=== PATIENT | male | born 1950 | race Caucasian/White ===

== ENCOUNTER 2020-01-09 09:38 | Outpatient (CLI) | payer MEDICARE, OTHER, SELFPAY ==
--- NOTE | 2020-01-09 09:54 | XR_ITS ---
WS: [id number] XR shoulder RT min 2V* [id number] REASON FOR EXAM: ROTATOR CUFF TENDONITIS FINDINGS: The acromioclavicular joint was normal. Glenoid humeral articulations normal. The clavicle and scapula bodies were normal. XR/XR shoulder RT min 2V* [id number] IMPRESSION: Negative right shoulder for bony changes.
--- NOTE | 2020-01-09 09:54 | XR_ITS ---
WS: [id number] XR shoulder LT min 2V* [id number] REASON FOR EXAM: ROTATOR CUFF TENDONITIS FINDINGS: The acromioclavicular joint showed hypertrophic changes with spurring along the undersurfac e of the clavicle. The glenoid humeral articulations normal. The clavicle and scapula bodies were normal. XR/XR shoulder LT min 2V* [id number] IMPRESSION: SPECT impingement changes off the spurring off the distal clavicle.
== END 2020-01-09 09:39 | disposition home or self-care (01) ==
LOC: RAD 09:49
PROVIDERS: Family Provider Family Medicine; PCP Family Medicine; Visit Provider Family Medicine
DX: M65.812 Other synovitis and tenosynovitis, left shoulder (principal); M65.811 Other synovitis and tenosynovitis, right shoulder
CPT/HCPCS: 73030

== ENCOUNTER 2020-04-26 10:58 | Outpatient (CLI) | payer MEDICARE, OTHER, SELFPAY ==
--- NOTE | 2020-04-26 11:01 | XR_ITS ---
WS: [id number] XR chest 2V* [id number] REASON FOR EXAM: DYSPNEA, CORONARY ARTERY DISEASE FINDINGS: The cardiac silhouette is not enlarged. The lung castro are well aerated. There is no pneumonia, pleural effusion, pulmonary edema, no pneumo thorax or mass defects. No definite osseous abnormalities. The hilum and apices are normal. There is basically no interval change since March 15, 2009. XR/XR chest 2V* [id number] IMPRESSION: Negative chest for active pathology.
--- NOTE | 2020-04-26 11:01 | XR_ITS ---
WS: [id number] XR lumbar spine 2-3V* [id number] REASON FOR EXAM: BACK PAIN, LUMBBAR FINDINGS: Degenerated disc changes L5-S1. There is spurring anteriorly at L4 and L5. The lumbosacral angle shows increased lordosis. There is no fractures of the lumbar spine, spinous processes, transverse processes. XR/XR lumbar spine 2-3V* [id number] IMPRESSION: Degenerated disc changes L5-S1. Slight increased lordosis.
== END 2020-04-26 10:59 | disposition home or self-care (01) ==
LOC: RADWPI 11:00
PROVIDERS: Family Provider Family Medicine; PCP Family Medicine; Visit Provider Family Medicine
DX: M54.5 Low back pain (principal); R06.00 Dyspnea, unspecified; E03.9 Hypothyroidism, unspecified; I25.10 Atherosclerotic heart disease of native coronary artery without angina pectoris; I10 Essential (primary) hypertension; E11.9 Type 2 diabetes mellitus without complications; M40.46 Postural lordosis, lumbar region; M51.37 Other intervertebral disc degeneration, lumbosacral region
CPT/HCPCS: 71046; 72100

== ENCOUNTER 2020-12-16 07:50 | Outpatient (CLI) | payer MEDICARE, SELFPAY ==
--- NOTE | 2020-12-16 07:57 | FL_ITS ---
WS: [id number] UPPER GI WITH AIR TECHNICAL: Double contrast upper GI with small bowel follow-through. FLUOROSCOPY TIME: 2.4 minutes CLINICAL INFORMATION: ABDOMINAL PAIN COMPARISON: None. FINDINGS: Swallowing: Normal. Esophagus: Mild esophageal dysmotility. No stricture or obstructing mass. Normal GE junction. No sign ificant hiatal hernia. Gastroesophageal reflux: Present Stomach: Normal. Duodenum: Normal. Other findings: None. SMALL BOWEL EXAMINATION CLINICAL INFORMATION: ABDOMINAL PAIN COMPARISON: None. FINDINGS: Initial abdomen radiograph: Normal bowel gas pattern. No abnormal calcification. Contrast material: 50/50 thin barium sulfate suspension. Transit time: 45 Minutes (normal = 30 - 240 minutes) Normal small bowel follow-through. No small bowel stricture, dilatation, adhesion, or mass. The termi nal ileum is normal.No evidence of high-grade stricture or obstructing mass. FLUOROSCOPY TIME: 2.4 minutes FL/FL upperGI air smallbowel ser* IMPRESSION: 1. Normal small bowel follow-through with normal transit time. 2. Mild esophageal dysmotility with reflux visualized in the upright and supin e position. 3. No significant hiatal hernia. 4. Normal double contrast stomach and duodenum.
== END 2020-12-16 07:51 | disposition home or self-care (01) ==
PROVIDERS: PCP Family Medicine; Visit Provider Family Medicine
DX: R10.9 Unspecified abdominal pain (principal)
CPT/HCPCS: 74246; 74248

== ENCOUNTER 2021-04-09 03:04 | Inpatient (IN) | payer MEDICARE, SELFPAY ==
[2021-04-09 03:10] VITALS: BP 162/82; PULSE 64; RESP 18; TEMP 36.4; O2SAT 95; BMI 32.1
--- NOTE | 2021-04-09 03:20 | CTR_ITS ---
PROCEDURE INFORMATION: Exam: CT Abdomen And Pelvis With Contrast Exam date and time: 04/09/2021 3:21 AM Age: 71 years old Clinical indication: Abdominal pain; Generalized; Prior surgery; Surgery type: Partial colectomy. Colostomy reversal. Hernia repair. ; Patient HX: Abd pain with constipation. TECHNIQUE: Imaging protocol: Computed tomography of the abdomen and pelvis with contrast. Radiation optimization: All CT scans at this facility use at least one of these dose optimization techniques: automated exposure control; mA and/or kV adjustment per patient size (includes targeted exams where dose is matched to clinical indication); or iterative reconstruction. Contrast material: OMNI 300; Contrast volume: 95 ml; Contrast route: INTRAVENOUS (IV); COMPARISON: CR Hip 2-3v LEFT wwo Pelv* [id number] 07/16/2014 8:42 AM RADIATION DOSE METRICS: Total DLP (mGy-cm): 1919.81 FINDINGS: Heart: Normal heart size. Coronary atherosclerotic calcifications seen. No pericardial effusion. Liver: Normal. No mass. Gallbladder and bile ducts: Normal. No calcified stones. No ductal dilation. Pancreas: Cystic lesions measuring 2.0 cm and 0.8 cm are seen in the pancreatic head. No pancreatic ductal dilatation seen. There is homogeneous enhancement of the pancreas. Spleen: Normal. No splenomegaly. Adrenal glands: Normal. No mass. Kidneys and ureters: Normal. No hydronephrosis. Stomach and bowel: In the right lower quadrant, there is a short segment of small bowel wall thickening without significant surrounding inflammatory changes, resulting obstruction of the small bowel proximally, manifested by dilated loops of small bowel with scattered air-fluid levels and small amount of free fluid in the right lower quadrant. Fluid is seen within the nondistended small bowel distally. Patent colorectal anastomosis.There is diverticulosis without evidence of diverticulitis. Appendix: No evidence of appendicitis. Intraperitoneal space: Unremarkable. No free air. No significant fluid collection. Vasculature: Mild diffuse atherosclerotic disease is present. Lymph nodes: Unremarkable. No enlarged lymph nodes. Urinary bladder: Unremarkable as visualized. Reproductive: Unremarkable as visualized. Bones/joints: Degenerative changes of the spine seen. Soft tissues: A small fat containing spigelian hernia is noted. CT/CT abdomen pelvis w con* [id number] IMPRESSION: 1. Imaging findings of partial small bowel obstruction versus focal enteritis, resulting in obstruction of small bowel proximally. Infectious and inflammatory etiologies should be considered. 2. Cystic lesions in the pancreatic head. Further evaluation with contrast enhanced abdomen MRI/MRCP in a non emergent basis is recommended. Radiation Dose CTDIVOL = (mGy): DLP = 1919.81 (mGy-cm)
--- NOTE | 2021-04-09 03:22 | W.ED.ABDPA2 ---
HPI - Abdominal Pain General: Chief Complaint: Abdominal Pain Stated Complaint: ab pain Time Seen by Provider: 04/09/21 03:04 Source: patient Mode of arrival: ambulatory Limitations: no limitations History of Present Illness: HPI narrative: 71-year-old male states he has been having right lower quadrant abdominal pain since 8 PM. He states the pain is sharp in nature and he rates an 8 out of 10. States is much worse with palpation and movement improved with rest. He had a history of a colectomy roughly 20 years ago and he denies any abdominal surgery since then. He denies any vomiting or fever. Denies any diarrhea. MD elicited complaint: abdominal pain Associated Symptoms: Denies chills, dysuria and fever(s) Review of Systems Const: Denies: fever(s), chills, body aches or change in appetite Eyes: Denies: blurry vision or eye discomfort ENMT: Denies: throat pain or dental pain Card: Denies: chest pain Resp: Denies: dyspnea GI: Reports: abdominal pain : Denies: dysuria Musc: Denies: neck pain or back pain Skin/Breast: Denies: rash Neuro: Denies: headache(s) Psych: Denies: depression Jose/Lymph: Denies: easy bruising All/Imm: Denies: urticaria PFSH ED PFSH: Medical History (Updated 04/09/21 @ 05:32 by Juliano Quiroz MD) Dyslipidemia Hypertension Hypothyroidism Psoriasis Surgical History (Updated 04/09/21 @ 05:32 by Juliano Quiroz MD) H/O adenoidectomy 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 H/O lithotripsy History of tonsillectomy S/P right knee arthroscopy Family History (Updated 04/09/21 @ 05:32 by Juliano Quiroz MD) Other Family history of premature coronary artery disease Social History (Updated 04/09/21 @ 05:32 by Juliano Quiroz MD) Smoking and tobacco status: never smoked Alcohol intake: never Substance/Drug Use: never Household members: spouse Housing: House Physical Exam Const: COMMON NORMALS: no acute distress, patient oriented x3 and healthy appearing HENMT: COMMON NORMALS: normocephalic and atraumatic HEAD & SCALP: normocephalic and atraumatic Eye: COMMON NORMALS: Equal, round and reactive pupils present and EOMs intact bilaterally PUPIL: Yes Equal, round and reactive pupils present Neck/C-Spine: COMMON NORMALS: full ROM and supple Chest: COMMONS NORMALS: normal inspection of the chest and normal palpation of entire chest wall Resp: COMMON NORMALS: normal respiratory effort, No retractions, No use of accessory muscles and clear to auscultation bilaterally AUSCULTATION: clear to auscultation bilaterally Cardio: COMMON NORMALS: regular rate, regular rhythm and No murmurs present (Cardio) RATE: regular rate RHYTHM: regular rhythm GI: COMMON NORMALS: Normal to inspection, nondistended, normoactive bowel sounds present, Soft to palpation and no masses PALPATION: Yes Soft to palpation and Yes Tenderness to palpation present (GI) Details: RLQ Extremity: COMMON NORMALS: normal to inspection and full ROM Neuro: COMMON NORMALS: patient oriented x3, moves all extremities and no focal motor deficits Psych: COMMON NORMALS: mental status grossly normal, Normal thought process present and cooperative THOUGHT PROCESS: Normal thought process present Skin: COMMON NORMALS: no rashes or lesions noted and no wounds GENERAL SKIN EXAM: no rashes or lesions noted Course Vital Signs: Vital signs: Vital Signs Temperature 97.5 F L 04/09/21 03:10 Pulse Rate 62 04/09/21 05:15 Respiratory Rate 17 04/09/21 05:15 Blood Pressure 156/81 04/09/21 05:15 Pulse Oximetry 96 04/09/21 05:15 MDM - Abdominal Pain MDM Narrative: Medical decision making narrative: Presents for abdominal pain. CT shows likely small bowel obstruction. Patient had NG tube placed in the ER and I spoke to hospitalist will admit. Patient's vital signs and blood work are all normal. He has been stable while in the ER. Lab Data: Labs: Lab Results 04/09/21 04/09/21 04/09/21 Range/Units 03:22 03:22 03:22 WBC 8.4 (4.0-10.0) 10^3/ uL RBC 4.54 (4.1-5.3) 10^6/u L Hgb 14.8 (11.7-16.6) g/dL Hct 44.9 (42.0-52.0) % MCV 98.9 H (80-94) fL MCH 32.6 (28.0-34.0) pg MCHC 33.0 (30.0-36.0) g/dL RDW 12.2 (12.1-15.1) % Plt Count 183 (130-400) 10^3/c mm MPV 9.9 (7.4-10.4) fL Neut % (Auto) 75.0 % Lymph % (Auto) 11.3 % Queens % (Auto) 9.8 % Eos % (Auto) 2.2 % Baso % (Auto) 0.6 % Neut # (Auto) 6.27 (1.8-7.7) 10^3/u L Lymph # (Auto) 0.9 (0.8-4.8) 10^3/u L Queens # (Auto) 0.8 (0.2-0.9) 10^3/u L Eos # (Auto) 0.2 (0.0-0.8) 10^3/u L Baso # (Auto) 0.1 (0.0-0.1) 10^3/u L Nucleated RBC % (a uto) 0 % Nucleated RBCs # 0.0 /100WBC Sodium 138 (136-145) mmol/L Potassium 4.4 (3.5-5.1) mmol/L Chloride 103 (98-107) mmol/L Carbon Dioxide 25 (22-29) mmol/L Anion Gap 14.4 (5-19) BUN 21 (8-23) mg/dL Creatinine 0.6 L (0.7-1.2) mg/dL GFR Calculation Not Reportable Glucose 122 H (65-115) mg/dL Calculated Osmolal ity 290 (285-295) mOsm/k g Lactate 1.2 (0.5-2.2) mmol/L Calcium 9.0 (8.5-10.5) mg/dL Total Bilirubin 0.6 (0.15-1.2) mg/dL AST 28 (0-40) U/L ALT 27 (0-41) U/L Alkaline Phosphata se 83 (40-130) IU/L Total Protein 6.8 (6.6-8.7) g/dL Albumin 4.0 (3.5-5.2) g/dL Globulin 2.8 (1.3-4.6) g/dL Lipase 54 (13-60) U/L Urine Color (Yellow) Urine Appearance (CLEAR) Urine pH (5-7) Ur Specific Gravit y (1.005-1.030) Urine Protein (Negative) Urine Glucose (UA) (Normal) Urine Ketones (Negative) Urine Blood (Negative) Urine Nitrate (Negative) Urine Bilirubin (Negative) Urine Urobilinogen (Negative) mg/dL Ur Leukocyte Afshan ase (Negative) Urine RBC (0-2) /hpf Urine WBC (0-5) /hpf Ur Squamous Epith Cells (0-5) /hpf Amorphous Sediment Urine Bacteria (NONE) /hpf Hyaline Casts /lpf Urine Mucus /hpf 04/09/21 Range/Units 04:30 WBC (4.0-10.0) 10^3/ uL RBC (4.1-5.3) 10^6/u L Hgb (11.7-16.6) g/dL Hct (42.0-52.0) % MCV (80-94) fL MCH (28.0-34.0) pg MCHC (30.0-36.0) g/dL RDW (12.1-15.1) % Plt Count (130-400) 10^3/c mm MPV (7.4-10.4) fL Neut % (Auto) % Lymph % (Auto) % Queens % (Auto) % Eos % (Auto) % Baso % (Auto) % Neut # (Auto) (1.8-7.7) 10^3/u L Lymph # (Auto) (0.8-4.8) 10^3/u L Queens # (Auto) (0.2-0.9) 10^3/u L Eos # (Auto) (0.0-0.8) 10^3/u L Baso # (Auto) (0.0-0.1) 10^3/u L Nucleated RBC % (a uto) % Nucleated RBCs # /100WBC Sodium (136-145) mmol/L Potassium (3.5-5.1) mmol/L Chloride (98-107) mmol/L Carbon Dioxide (22-29) mmol/L Anion Gap (5-19) BUN (8-23) mg/dL Creatinine (0.7-1.2) mg/dL GFR Calculation Glucose (65-115) mg/dL Calculated Osmolal ity (285-295) mOsm/k g Lactate (0.5-2.2) mmol/L Calcium (8.5-10.5) mg/dL Total Bilirubin (0.15-1.2) mg/dL AST (0-40) U/L ALT (0-41) U/L Alkaline Phosphata se (40-130) IU/L Total Protein (6.6-8.7) g/dL Albumin (3.5-5.2) g/dL Globulin (1.3-4.6) g/dL Lipase (13-60) U/L Urine Color Yellow (Yellow) Urine Appearance Clear (CLEAR) Urine pH 5 (5-7) Ur Specific Gravit y 1.025 (1.005-1.030) Urine Protein 1+ H (Negative) Urine Glucose (UA) Norm (Normal) Urine Ketones Negative (Negative) Urine Blood 2+ H (Negative) Urine Nitrate Negative (Negative) Urine Bilirubin Neg (Negative) Urine Urobilinogen Norm (Negative) mg/dL Ur Leukocyte Afshan ase Negative (Negative) Urine RBC 5-10 H (0-2) /hpf Urine WBC None (0-5) /hpf Ur Squamous Epith Cells 0-4 H (0-5) /hpf Amorphous Sediment Not Reportable Urine Bacteria None (NONE) /hpf Hyaline Casts 5-10 H /lpf Urine Mucus 1+ /hpf Imaging Data ^: CT Abd/Pel: Attestation: I personally reviewed and interpreted this imaging study as follows: Radiologist's impression: [address] [address] [address] Scan Report Signed Patient: Aleksandar Hoffman Unit #: [id number] : [id number] Age/Sex: 71 / M ADM Date: 04/09/21 Loc: ER Room/Bed: Attending Dr: Ordering Provider/Ordering MD: Frankie Meyer MD Date of Service: 04/09/21 Procedure(s): CT abdomen pelvis w con* [id number] Accession Number(s): [id number] Report Number: [id number] PROCEDURE INFORMATION: Exam: CT Abdomen And Pelvis With Contrast Exam date and time: 04/09/2021 3:21 AM Age: 71 years old Clinical indication: Abdominal pain; Generalized; Prior surgery; Surgery type: Partial colectomy. Colostomy reversal. Hernia repair. ; Patient HX: Abd pain with constipation. TECHNIQUE: Imaging protocol: Computed tomography of the abdomen and pelvis with contrast. Radiation optimization: All CT scans at this facility use at least one of these dose optimization techniques: automated exposure control; mA and/or kV adjustment per patient size (includes targeted exams where dose is matched to clinical indication); or iterative reconstruction. Contrast material: OMNI 300; Contrast volume: 95 ml; Contrast route: INTRAVENOUS (IV); COMPARISON: CR Hip 2-3v LEFT wwo Pelv* [id number] 07/16/2014 8:42 AM RADIATION DOSE METRICS: Total DLP (mGy-cm): 1919.81 FINDINGS: Heart: Normal heart size. Coronary atherosclerotic calcifications seen. No pericardial effusion. Liver: Normal. No mass. Gallbladder and bile ducts: Normal. No calcified stones. No ductal dilation. Pancreas: Cystic lesions measuring 2.0 cm and 0.8 cm are seen in the pancreatic head. No pancreatic ductal dilatation seen. There is homogeneous enhancement of the pancreas. Spleen: Normal. No splenomegaly. Adrenal glands: Normal. No mass. Kidneys and ureters: Normal. No hydronephrosis. Stomach and bowel: In the right lower quadrant, there is a short segment of small bowel wall thickening without significant surrounding inflammatory changes, resulting obstruction of the small bowel proximally, manifested by dilated loops of small bowel with scattered air-fluid levels and small amount of free fluid in the right lower quadrant. Fluid is seen within the nondistended small bowel distally. Patent colorectal anastomosis.There is diverticulosis without evidence of diverticulitis. Appendix: No evidence of appendicitis. Intraperitoneal space: Unremarkable. No free air. No significant fluid collection. Vasculature: Mild diffuse atherosclerotic disease is present. Lymph nodes: Unremarkable. No enlarged lymph nodes. Urinary bladder: Unremarkable as visualized. Reproductive: Unremarkable as visualized. Bones/joints: Degenerative changes of the spine seen. Soft tissues: A small fat containing spigelian hernia is noted. CT/CT abdomen pelvis w con* [id number] IMPRESSION: 1. Imaging findings of partial small bowel obstruction versus focal enteritis, resulting in obstruction of small bowel proximally. Infectious and inflammatory etiologies should be considered. 2. Cystic lesions in the pancreatic head. Further evaluation with contrast enhanced abdomen MRI/MRCP in a non emergent basis is recommended. Discharge Plan Discharge Patient Disposition: Admitted As Inpatient Admit Provider: Juliano Quiroz Clinical Impression: Small bowel obstruction Condition: Stable Coding Level of Care Code ED Workers Compensation Specialist for Chg Fwd Exam Comprehensive
[2021-04-09] MEDS: sodium chloride 0.9% 1,000 ML 999 ML IV (03:28)
[2021-04-09] MEDS: ondansetron 2 mg/ML SDV 2 mL 4 MG IVP ×2 (03:29→06:34)
[2021-04-09] MEDS: HYDROmorphone 1 mg/mL INJ 1 mL 0.5 MG IVP (03:30)
[2021-04-09 03:34] LABS: Basophils # 0.1 10^3/uL (0.0-0.1); Basophils % 0.6 %; Eosinophils # 0.2 10^3/uL (0.0-0.8); Eosinophils % 2.2 %; Hematocrit 44.9 % (42.0-52.0); Hemoglobin 14.8 g/dL (11.7-16.6); Lymphocytes # 0.9 10^3/uL (0.8-4.8); Lymphocytes % 11.3 %; Mean Corpuscular Hemoglobin 32.6 pg (28.0-34.0); Mean Corpuscular Volume 98.9 fL (80-94); Mean Platelet Volume 9.9 fL (7.4-10.4); Monocytes # 0.8 10^3/uL (0.2-0.9); Monocytes % 9.8 %; Neutrophils # 6.27 10^3/uL (1.8-7.7); Nucleated Red Blood Cells % 0 %; Platelet Count 183 10^3/cmm (130-400); Red Blood Count 4.54 10^6/uL (4.1-5.3); Red Cell Distribution Width 12.2 % (12.1-15.1); White Blood Count 8.4 10^3/uL (4.0-10.0)
[2021-04-09 03:54] LABS: Alanine Aminotransferase 27 U/L (0-41); Alkaline Phosphatase 83 IU/L (40-130); Aspartate Amino Transferase 28 U/L (0-40); Blood Urea Nitrogen 21 mg/dL (8-23); Carbon Dioxide 25 mmol/L (22-29); Chloride 103 mmol/L (98-107); Globulin 2.8 g/dL (1.3-4.6); Glucose 122 mg/dL (65-115); Lipase 54 U/L (13-60); Osmolality Calculated 290 mOsm/kg (285-295); Sodium 138 mmol/L (136-145); Total Bilirubin 0.6 mg/dL (0.15-1.2); Total Protein 6.8 g/dL (6.6-8.7)
[2021-04-09 04:18] LABS: Anion Gap 14.4 (5-19); Potassium 4.4 mmol/L (3.5-5.1)
[2021-04-09] MEDS: iohexol 300 mg/mL 100 mL Btl IV (04:28)
[2021-04-09 04:44] LABS: Add Urine Microscopic? YES; Bilirubin Urine Neg (Negative); Blood Urine 2+ (Negative); Glucose Urine UA Norm (Normal); Ketones Urine Negative (Negative); Leukocyte Esterase Urine Negative (Negative); Nitrate Urine Negative (Negative); Protein Urine 1+ (Negative); Specific Gravity, Urine 1.025 (1.005-1.030); Urine Appearance Clear (CLEAR); Urine Color Yellow (Yellow); Urobilinogen Urine Norm (Negative); pH Urine 5 (5-7)
[2021-04-09 04:45] LABS: Add Urine Culture? No; Mucus Urine 1+ /hpf; Squamous Epithelial Cell Urine 0-4 /hpf (0-5)
[2021-04-09 04:56] LABS: Lactate (Lactic Acid level) 1.2 mmol/L (0.5-2.2)
[2021-04-09 05:15] VITALS: BP 156/81; PULSE 62; RESP 17; O2SAT 96
--- NOTE | 2021-04-09 05:29 | P.HP_ITS ---
Providers/Chief Complaint Primary Care Provider: Brendan Cormier MD Chief Complaint: ab pain History of Present Illness Aleksandar Hoffman is a 71 year old male who has previous history of colectomy secondary to stricture about 20 years ago, his previous colonoscopy done 2017 revealed multiple polyps which were not precancerous, presented today with chief complaint abdominal pain and nausea. Patient is stating that for last 10 days h americo has not had a proper bowel movement, he had loose stools as well about 2 weeks ago and then his bowel movement transition to small caliber. He was feeling bloated for quite some days until today around 7 PM he started experiencing abdominal pain. Before this incident he had some peanuts with crackers and milk he was not able to eat a full meal because of abdominal discomfort and bloating. He initially tried to bear out his abdominal discomfort but around 3 AM he started experiencing worsening of symptoms, he woke his up who brought him to the ER. No emesis at home. His last bowel movement was yesterday, patient is endorsing a small bowel movement, he is endorsing constipation and incomplete evacuation. Diagnostics in the ER revealed normal hemodynamics, hypertension, normal CBC and BMP, partial small obstruction on CT abdomen pelvis, enteritis, cystic lesion in pancreatic head normal transaminases bilirubin 0.6 Review of Systems Const: Reports: chills, body aches, change in appetite and fatigue; Denies: fever(s) Eyes: Denies: change in vision ENMT: Denies: throat pain Card: Denies: chest pain Resp: Denies: dyspnea GI: Reports: abdominal pain, nausea and constipation : Denies: flank pain Musc: Denies: neck pain Skin/Breast: Reports: lesions Neuro: Denies: headache(s) Psych: Denies: anxiety Endo: Denies: polyuria Jose/Lymph: Denies: easy bruising All/Imm: Denies: urticaria Medications/Allergies Allergies Allergy/AdvReac Type Severity Reaction Status Date / Time cephalexin [From Keflex] Allergy Unknown Verified 04/09/21 03:10 PFSH Acute PFSH: Medical History (Updated 04/09/21 @ 06:17 by Juliano Quiroz MD) Dyslipidemia Hypertension Hypothyroidism Psoriasis Surgical History (Updated 04/09/21 @ 06:17 by Juliano Quiroz MD) H/O adenoidectomy 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 H/O lithotripsy History of tonsillectomy S/P right knee arthroscopy Stented coronary artery Family History (Updated 04/09/21 @ 05:32 by Juliano Quiroz MD) Other Family history of premature coronary artery disease Social History (Updated 04/09/21 @ 05:32 by Juliano Quiroz MD) Smoking and tobacco status: never smoked Alcohol intake: never Substance/Drug Use: never Household members: spouse Housing: House Vitals/I&O/Wt Last Vital Signs Temp 97.5 F L 04/09/21 03:10 Pulse 62 04/09/21 05:15 Resp 17 04/09/21 05:15 BP 156/81 04/09/21 05:15 Pulse Ox 96 04/09/21 05:15 04/08/21 04/08/21 04/09/21 14:59 22:59 06:59 Intake Total 1000 / 1000 Balance 1000 / 1000 Weight last 48 hrs Weight 92.986 kg Physical Exam Narrative: EXAM NARRATIVE: This is a pleasant and cooperative elderly male who was sitting upright with nasogastric tube draining bilious content About 200 mL in the container Awake alert oriented x3 no neurological deficit at the bedside EOMI, PERRLA S1, S2 sinus rhythm no signs of heart failure or murmur Abdomen soft but mildly distended, no signs of peritonitis however could not appreciate bowel sounds in all quadrants, no guarding or rigidity Lower extremity mild trace edema Patient looks well-built, No acute respite distress bilateral breath sounds without adventitious rhonchi or crackles Data : 04/09/21 03:22 04/09/21 03:22 A&P Assessment and plan (1) Small bowel obstruction: Status: Acute (2) Pancreatic cyst: Status: Acute Additional A&P Information Partial small bowel obstruction and enteritis Patient is afebrile no leukocytosis Cystic pancreatic head 2 cm and 0.8 cm without ductal dilation no splenomegaly, normal transaminases and bilirubin Previous chest x-ray unremarkable, Patient does have history of colectomy in the past which she is attributing to stricture formation however inflammatory bowel disease has never been diagnosed he has history of psoriasis for which she is using topical steroids He is endorsing alternating bowel movement, previous colonoscopy in 2017 without precancerous lesion identified Add Zosyn for possible enteritis, check C. difficile and stool studies Consult general surgery if symptoms are getting worse Continue IV fluid hydration and opiates for analgesia, will need another colonoscopy once his acute episode resolves Hypothyroidism: We will keep levothyroxine on hold for now, check TSH Coronary disease: No active chest discomfort: Psoriasis without acute decompensation Full code N.p.o. DVT prophylaxis Lovenox Attestations Medical Necessity Statement*: Stay in the hospital because more than 2 midnights for management of partial SBO enteritis Time Spent in Patient Care: (>than 50% of time spent in counselling and/or direct pt care on unit) . 35mins Coding Level of Care Code Acute Senior Financial Reporting Analyst for Chg Fwd Diagnoses Small bowel obstruction K56.609 Pancreatic cyst K86.2
[2021-04-09] MEDS: LORazepam 2 mg/mL INJ 1 mL 1 MG IVP (05:39)
[2021-04-09] MEDS: cetacaine Spray 5 gm Can 1 SPRAY TOPICAL (05:55)
--- NOTE | 2021-04-09 07:16 | PC.NURSE ---
Pt laying in bed with eyes closed, appears to be asleep, pt appears comfortable and in no acute distress at this time, pt has had 300ml out of NG tube. No immediate needs identified, will continue to monitor.
--- NOTE | 2021-04-09 08:30 | PC.PHAR ---
pt and pts verified medications-pt states he was taking pepcid 20mg bid rx filled on 03/01/21 90d/s pt states he stop taking a while ago states it didnt work
[2021-04-09 08:36] VITALS: BP 133/65; PULSE 56; RESP 16; O2SAT 94
[2021-04-09 10:40] VITALS: BP 137/78; PULSE 65; RESP 14; O2SAT 95
--- NOTE | 2021-04-09 10:45 | PC.NURSE ---
Pt updated on plan of care, delays in admission explained, pt is pleasant and demonstrates understanding, comfort measures offered, no other needs identified at this time, will continue to monitor.
--- NOTE | 2021-04-09 12:30 | PC.NURSE ---
NG tube placed by Sunita DURAN prior to shift change.
[2021-04-09 12:53] LABS: Thyroid Stimulating Hormone 4.21 uIU/mL (0.27-4.20)
[2021-04-09] MEDS: enoxaparin 40 mg/0.4 mL Syringe SUBCUT (13:04)
[2021-04-09] MEDS: sodium chloride 0.9% 1,000 ML 75 ML IV (13:04)
[2021-04-09] MEDS: piperacillin-tazobactam 3.375 GM in sodium chloride 0.9% (plus) 50 ML IV ×2 (13:04→20:44)
[2021-04-09] MEDS: lactulose oral liq 20 gm/30 mL UDC 10 GM PO (14:25)
[2021-04-09] MEDS: magnesium citrate Btl 296 mL PO (14:25)
--- NOTE | 2021-04-09 14:56 | P.CONIM_ITS ---
Providers/Reason For Consult Consulting Physician/Specialty*: General Surgery Dr. Contreras Reason for Consult*: sbo Attending Physician: Abner Ponce MD Primary Care Provider: Brendan Cormier MD History of Present Illness History of Present Illness Aleksandar Hoffman is a 71 year old male who presented to the ER last night with complaints of abdominal pain since 8pm last night. He stated that the pain was severe, generalized, no aggravating or relieving factors.No nausea or vomiting. No similar episodes in the past. Patient has a longstanding history of constipation alternating with large loose bowel movements. He thinks his last bowel movement is about a week ago and he has had couple small bowel movements since then. He takes magnesium for his constipation. Patient has had 2 left inguinal hernia repairs in the past. He had sigmoid colectomy for diverticulitis in 2002, had to be taken back to surgery the following day for a colostomy and had a colostomy reversal 3 months later. His last colonoscopy in 2016 was normal Review of Systems General: Reports: 10 or more systems reviewed and unremarkable except in HPI and below Meds/Allergies Home Medications and Allergies Home Medications Medication Instructions Recorded Confirmed Last Taken Type aspirin [Aspir-81] 81 mg PO BEDTIME 04/09/21 04/09/21 Unknown History atorvastatin 40 mg PO BEDTIME 04/09/21 04/09/21 Unknown History carvedilol 6.25 mg PO BID 04/09/21 04/09/21 Unknown History cetirizine [Zyrtec] 10 mg PO QAM 04/09/21 04/09/21 Unknown History cholecalciferol (vitamin D3) 2,000 unit PO QAM 04/09/21 04/09/21 Unknown History [Vitamin D3] coenzyme Q10 [CoQ-10] 100 mg PO QAM 04/09/21 04/09/21 Unknown History fluticasone propionate 2 spray INTRANASAL DAILY PRN 04/09/21 04/09/21 Unknown History gabapentin 300 mg PO BID 04/09/21 04/09/21 Unknown History levothyroxine 25 mcg PO QAM 04/09/21 04/09/21 Unknown History magnesium glycinate 100 mg PO BID 04/09/21 04/09/21 Unknown History metformin 500 mg PO BEDTIME 04/09/21 04/09/21 Unknown History pantothenic acid (vit B5) 1 tab PO BID 04/09/21 04/09/21 Unknown History vitamin B complex 1 tab PO BID 04/09/21 04/09/21 Unknown History Allergies Allergy/AdvReac Type Severity Reaction Status Date / Time cephalexin [From Keflex] Allergy Unknown Verified 04/09/21 08:29 Current Medications Current Medications Generic Name Dose Route Start Last Admin Trade Name Freq PRN Reason Stop Dose Admin Enoxaparin Sodium 40 mg 04/09/21 13:00 04/09/21 13:04 Enoxaparin 40 Mg/0.4 Ml Syringe SUBCUT 40 mg Q24H MEDINA Administration Piperacillin Sod/Tazobactam 50 mls @ 12.5 mls/hr 04/09/21 12:30 04/09/21 13:04 Sod 3.375 gm/ Sodium Chloride IV 12.5 mls/hr Q8H MEDINA Administration Protocol Sodium Chloride 1,000 mls @ 75 mls/hr 04/09/21 12:30 04/09/21 13:04 Sodium Chloride 0.9% IV 75 mls/hr .[id number] MEDINA Administration Lactulose 10 gm 04/09/21 14:00 04/09/21 14:25 Lactulose Oral Liq 20 Gm/30 Ml Udc PO 10 gm Q12H MEDINA Administration PFSH Acute PFSH: Medical History Dyslipidemia Hypertension Hypothyroidism Psoriasis Surgical History (Updated 04/09/21 @ 15:01 by Andrey Contreras MD) H/O adenoidectomy H/O colectomy sigmoid colectomy for diverticulitis H/O lithotripsy History of coronary artery stent placement History of tonsillectomy S/P right knee arthroscopy Family History Other Family history of premature coronary artery disease Social History Smoking and tobacco status: never smoked Alcohol intake: never Substance/Drug Use: never Household members: spouse Housing: House Vitals/I&O/Wt Last Vital Signs Temp 97.5 F L 04/09/21 03:10 Pulse 65 04/09/21 10:40 Resp 14 04/09/21 10:40 BP 137/78 06/02/21 10:40 Pulse Ox 95 04/09/21 10:40 04/08/21 04/09/21 04/09/21 22:59 06:59 14:59 Intake Total 1000 / 1000 Balance 1000 / 1000 Weight last 48 hrs Weight 205 lb Physical Exam Narrative: EXAM NARRATIVE: HEENT: Normocephalic Eye: Sclera /conjunctiva normal Abdomen: Soft to palpation, non tender, non distended, well healed midline laparotomy scar Neurological: Oriented to place person and time Skin: Intact, no lesions appreciated on gross exam A&P Assessment and plan (1) Small bowel obstruction: 71-year-old male with history of prior sigmoid colectomy, followed by colostomy, requiring subsequent colostomy takedown. Patient has generalized abdominal pain, but no evidence of peritonitis. NG tube output has been minimal. CT ab/pelvis shows significant amount of stools in the colon and findings concerning for possible small bowel obstruction/enteritis. NG tube to low intermittent suction 1 bottle magnesium citrate Milk of molasses enema Abdominal series in the morning Protonix 40 mg twice daily for GI prophylaxis Lovenox 40 mg subcu daily for DVT prophylaxis Discussed with the patient that at this point he is hemodynamically stable with no evidence of peritonitis and therefore we can continue with bowel rest and NG tube and try to address his constipation. If there is no improvement in the next 48 to 72 hours or if he develops any peritonitis then we would need to proceed with surgery Status: Acute Consult Attestations Medical Necessity Statement: As per attending physician Coding Level of Care Code Acute Ballistics Tester for [facility] Diagnoses Small bowel obstruction K56.609
[2021-04-09 16:00] VITALS: BP 120/70; PULSE 66; RESP 16; TEMP 36.4; O2SAT 93
--- NOTE | 2021-04-09 17:15 | P.PN_ITS ---
Subjective Subjective: Interval history: Patient was examined this morning, he is emergency room, waiting to be transferred upstairs, his abdomen still remains distended, not passing any gas, did have a hard bowel movement yesterday, he tells me that he has had multiple abdominal surgeries, no fevers, chills, NG tube is in place Vitals/I&O/Wt Last Vital Signs Temp 97.6 F 04/09/21 16:00 Pulse 66 04/09/21 16:00 Resp 16 04/09/21 16:00 BP 120/70 04/09/21 16:00 Pulse Ox 93 04/09/21 16:00 04/09/21 04/09/21 04/09/21 06:59 14:59 22:59 Intake Total 1000 / 1000 Output Total 200 / 200 Balance 1000 / 1000 -200 / -200 Weight last 48 hrs Weight 92.986 kg Physical Exam Const: COMMON NORMALS: no acute distress and alert ORIENTATION/CONSCIOUSNESS: Yes awake, Yes oriented to person, Yes oriented to place and Yes oriented to time Resp: COMMON NORMALS: normal respiratory effort, No retractions, No use of accessory muscles and clear to auscultation bilaterally AUSCULTATION: clear to auscultation bilaterally Cardio: COMMON NORMALS: regular rate, regular rhythm, S1 normal heart sound present and S2 normal heart sound present RATE: regular rate RHYTHM: r egular rhythm HEART SOUNDS: S1 normal heart sound present and S2 normal heart sound present GI: COMMON NORMALS: Soft to palpation INSPECTION: Yes normal to inspection and Yes abdominal distension PALPATION: Yes Soft to palpation, Yes Tenderness to palpation present (GI) (Generalized), No Guarding due to palpation present (GI) and No Rigid due to palpation Neuro: SENSORIUM/ORIENTATION: Yes alert, Yes oriented to person, Yes oriented to place and Yes oriented to time Data : 04/09/21 03:22 04/09/21 03:22 A&P Assessment and plan (1) Small bowel obstruction: Status: Acute (2) Pancreatic cyst: Status: Acute (3) Non-insulin dependent type 2 diabetes mellitus: Status: Acute (4) CAD (coronary artery disease): Status: Acute (5) Hypothyroidism: Status: Acute Additional A&P Information Partial small bowel obstruction and enteritis Likely secondary to his previous abdominal surgeries, surgical adhesions did have a colonoscopy in 2017, no precancerous lesions identified, no bloody or black stools Did complain of a day of diarrhea before all his constipation and abdominal distention began Plan: -Start IV fluids -N.p.o. -Pain control -NG tube low intermittent suction -Continue Zosyn for concerns for enteritis -C. difficile, stool studies -Bowel regimen -General surgery on consult -Protonix for GI prophylaxis -Lovenox for DVT prophylaxis -Full code Cystic pancreatic head 2 cm and 0.8 cm without ductal dilation no splenomegaly, normal transaminases and bilirubin Is to follow-up with outpatient MRI abdomen, follow-up with hematology oncology Hypothyroidism: TSH 4.2, continue levothyroxine Apo-cczphri-[id number] type 2 diabetes mellitus, insulin sliding scale Coronary disease: No active chest discomfort: Psoriasis without acute decompensation Full code N.p.o. DVT prophylaxis Lovenox Attestations 2 Medical Necessity Statement*: Patient requires hospitalization for partial small bowel obstruction Coding Level of Care Code Acute Greige Goods Marker for [facility] Diagnoses Small bowel obstruction K56.609 Pancreatic cyst K86.2 Non-insulin dependent type 2 diabetes mellitus E11.9 CAD (coronary artery disease) I25.10 Hypothyroidism E03.9
--- NOTE | 2021-04-09 18:23 | PC.NURSE ---
SHIFT SUMMARY PATIENT HAS DONE WELL SINCE ARRIVING TO THE FLOOR FROM THE ER. NG TUBE CONNECTED TO LIS. PATIENT HAS HAD 700ML OF OUTPUT. THIS NURSE ADMINISTERED MILK OF MOLASSES ENEMA, MAG CITRATE, AND LACTULOSE. PATIENT HAS NOW HAD 4 BOWEL MOVEMENTS. THE FIRST TWO BOWEL MOVEMENTS WERE MODERATE FORMED STOOL. THE LAST TWO HAVE BEEN VERY LOOSE STOOLS. PATIENT HAS NO MORE COMPLAINTS OF ABDOMINAL PAIN AT THIS TIME.
[2021-04-09 20:00] VITALS: BP 150/76; PULSE 75; RESP 18; TEMP 36.8; O2SAT 93
[2021-04-09 21:37] LABS: Glucose Point of Care 112 mg/dL (70-110)
--- NOTE | 2021-04-09 22:44 | XRR_ITS ---
PROCEDURE INFORMATION: Exam: XR Chest Exam date and time: 04/09/2021 10:59 PM Age: 71 years old Clinical indication: Device placement; Ng tube; Additional info: Ng tube placement TECHNIQUE: Imaging protocol: XR of the chest. Views: 1 view. COMPARISON: CR XR chest 2V* [id number] 04/26/2020 11:07 AM FINDINGS: Tubes, catheters and devices: NG tube placement with tip near the gastric fundus. Lungs: Mild atelectasis in the lung bases. Pleural spaces: Unremarkable. No pleural effusion. No pneumothorax. Heart/Mediastinum: Unremarkable. No cardiomegaly. Diaphragm: Elevation of the right diaphragm. Bones/joints: Unremarkable. XR/XR chest 1V portable [id number] IMPRESSION: 1. NG tube near the gastric fundus.
[2021-04-10] VITALS: BP 134/72; PULSE 61; RESP 16; TEMP 36.4; O2SAT 92
[2021-04-10] MEDS: lactulose oral liq 20 gm/30 mL UDC 10 GM PO (03:00)
[2021-04-10] MEDS: sodium chloride 0.9% 1,000 ML 75 ML IV (03:01)
[2021-04-10 03:28] LABS: Basophils % 0.6 %; Eosinophils # 0.1 10^3/uL (0.0-0.8); Eosinophils % 1.9 %; Hematocrit 40.9 % (42.0-52.0); Hemoglobin 13.4 g/dL (11.7-16.6); Lymphocytes # 0.6 10^3/uL (0.8-4.8); Lymphocytes % 8.8 %; Mean Corpuscular HGB Conc 32.8 g/dL (30.0-36.0); Mean Corpuscular Hemoglobin 32.8 pg (28.0-34.0); Monocytes # 0.5 10^3/uL (0.2-0.9); Monocytes % 7.6 %; Neutrophils # 5.38 10^3/uL (1.8-7.7); Neutrophils % 80.7 %; Nucleated Red Blood Cells % 0 %; Platelet Count 167 10^3/cmm (130-400); Red Blood Count 4.09 10^6/uL (4.1-5.3); Red Cell Distribution Width 12.6 % (12.1-15.1); White Blood Count 6.7 10^3/uL (4.0-10.0)
[2021-04-10 03:50] LABS: Anion Gap 11.1 (5-19); Blood Urea Nitrogen 17 mg/dL (8-23); Calcium 8.3 mg/dL (8.5-10.5); Carbon Dioxide 30 mmol/L (22-29); Chloride 106 mmol/L (98-107); Glucose 123 mg/dL (65-115); Osmolality Calculated 299 mOsm/kg (285-295); Potassium 4.1 mmol/L (3.5-5.1); Sodium 143 mmol/L (136-145)
[2021-04-10 03:54] LABS: Magnesium 2.2 mg/dL (1.7-2.3); Phosphorus 2.8 mg/dL (2.5-4.5)
[2021-04-10 04:00] VITALS: BP 125/66; PULSE 56; RESP 17; TEMP 37; O2SAT 91
[2021-04-10] MEDS: piperacillin-tazobactam 3.375 GM in sodium chloride 0.9% (plus) 50 ML IV ×2 (04:57→12:45)
[2021-04-10] MEDS: levothyroxine 25 mcg Tablet PO (05:42)
--- NOTE | 2021-04-10 06:00 | XR_ITS ---
WS: [id number] Abdomen series, Flat and upright 04/10/2021 Clinical Data: sbo Comparison: None. Findings: No free air is seen beneath the diaphragms. No abnormal intra-abdominal masses or calcifica tions are seen. There is a nasogastric tube curled in the stomach. There is air in the colon but yefri le air in the small bowel. XR/XR abdomen min 2V [id number] Impression: Negative flat and upright films of the abdomen.
[2021-04-10 06:57] LABS: Glucose Point of Care 124 mg/dL (70-110)
[2021-04-10 07:58] VITALS: BP 132/75; PULSE 55; RESP 16; TEMP 37; O2SAT 91
[2021-04-10] MEDS: magnesium citrate Btl 296 mL PO (08:02)
--- NOTE | 2021-04-10 08:13 | PM.PN ---
Subjective Subjective: Interval history: Patient had multiple bowel movements, denies any abdominal pain, nausea or vomiting, NG tube output is bilious Vitals/I&O/Wt Last Vital Signs Temp 98.6 F 04/10/21 07:58 Pulse 55 L 04/10/21 07:58 Resp 16 04/10/21 07:58 BP 132/75 04/10/21 07:58 Pulse Ox 91 04/10/21 07:58 04/09/21 04/10/21 04/10/21 22:59 06:59 14:59 Intake Total 50 / 1100 1050 / 1100 Output Total 1050 / 1050 Balance -1000 / 50 1050 / 50 Weight last 48 hrs Weight 205 lb Physical Exam Narrative: EXAM NARRATIVE: Abdomen: Soft, nontender, nondistended Data : 04/10/21 02:51 04/10/21 02:51 A&P Assessment and plan (1) Small bowel obstruction: 71-year-old male with history of prior sigmoid colectomy colostomy and subsequent colostomy takedown who presents with suspected partial small bowel obstruction. Patient is hemodynamically stable with no evidence of peritonitis. Abdominal x-ray does not show any significant evidence of obstruction Clamp NG tube, start clear liquid diet Milk of molasses enema today 1 bottle magnesium citrate today If he is able to tolerate clears and does not develop any nausea with the NG tube clamped we will discontinue the NG tube and advance to full liquid diet later today Status: Acute Attestations Medical Necessity Statement*: Small bowel obstruction requiring 1 more night of inpatient stay Coding Level of Care Code Acute Account Contact Associate for [facility] Diagnoses Small bowel obstruction K56.609
[2021-04-10] MEDS: pantoprazole 40 mg SDV IVP (10:25)
--- NOTE | 2021-04-10 11:14 | PC.CHAP ---
Pastoral Care Encounter/Spiritual Assessment Type of Contact [] Declined plate molder visit [] Patient/Family/Request visit [] Outpatient visit [] Follow-up visit [] Physician referral [] Code/Alert [x] Routine visit [] Staff referral [] Actively dying [] Patient sleeping [] Family support [] [] Out of room [] Palliative care [] [x] Receiving care in room [] Pre-surgical visit [x] Trauma [x] Long length of stay [] ICU visit [] Other: Relational/Emotional Strength [x] Patient feels connected with others/family/visitors/staff [] Distress [] Loneliness/isolation [] Abandonment Spirituality of Patient [x] Person of Comfort [] Attends Pentecostalism of their Comfort [x] Believes in Prayer [] Reads Bible or Congregational materials [] There are Spiritual issues to be addressed Diesel Truck Technician Interventions [x] Prayer [x] Active listening [x] Non-anxious presence [x] Spiritual/emotional support [] Crisis/trauma care [x] Spiritual counseling [] Bereavement support [] Provided bereavement packet [] Provided Bible/devotional materials [] Provided toy/stuffed animal, coloring book to patient or family member [] Provided Communion [] Anointing/[place] [] Salvation [x] Completed spiritual assessment [] Other: Impact on Illness or Injury [] Angry [] Fearful [x] Anxious [] Often cries [] Exhaustion [x] Unable to work [] Unable to attend oriental orthodox [] Unable to walk/stand [] Unable to read [] Unable to drive [] Unable to eat/drink [] Unable to sleep [] Unable to be with family [] Patient intubated [] Other: Summary Not sure about his health, concerned about the end of life, wants to go home has a good attitude Time spent with patient 10 mins
[2021-04-10 11:33] VITALS: BP 137/73; PULSE 58; RESP 16; TEMP 36.6; O2SAT 91
[2021-04-10 11:44] LABS: Glucose Point of Care 151 mg/dL (70-110)
[2021-04-10] MEDS: enoxaparin 40 mg/0.4 mL Syringe SUBCUT (12:45)
--- NOTE | 2021-04-10 15:49 | PC.NURSE ---
discussed with dr. Contreras this AM to clamp NGT and check residual later this afternoon, if less than 100ml remove tube and start pt on full liquid. residual checked and was less than 25ml. ngt was removed and a full liquid diet ordered. patient refused the enema that was ordered because he has had multiple bowel movements today.
[2021-04-10 16:00] VITALS: BP 129/75; PULSE 63; RESP 16; TEMP 37; O2SAT 91
--- NOTE | 2021-04-10 16:48 | P.DS_ITS ---
Discharge Providers Date of Admission: 04/09/21 05:26 Date of Discharge: April 10, 2021 Attending Provider at Admission: Juliano Quiroz MD Attending Provider at Discharge: Abner Ponce MD Primary Care Provider: Brendan Cormier MD Diagnoses at Discharge Discharge Diagnosis (1) Small bowel obstruction: Status: Acute Reason for Visit Reason for Visit: ab pain Hospital Course Hospital Course This is a 71-year-old male with a past medical history of atf-ytnveun-vcpssyaxd type 2 diabetes mellitus, hypertension, hyperlipidemia, hypothyroidism, history of multiple abdominal surgery who presents to [facility] due to abdominal distention, abdominal pain constipation Patient was admitted to [facility] for partial small bowel obstruction, likely secondary to adhesions, surgery was consulted kept n.p.o., NG tube placed, pain control, Zofran for nausea, received IV fluids. Patient clinically improved, given a bowel regimen, he was having several large bowel movements, tolerated clear liquid diet well, symptomatology significantly impr stephane. Discharged on a bowel regimen of MiraLAX and lactulose, advised if you have recurrent abdominal pain go to the emergency room. Follow with primary care in 1 week. Patient was also found to have a cystic lesion in the pancreatic head, patient will require outpatient evaluation with hematology and oncology, follow-up with Dr. Byrd in 2 to 4 weeks. Patient virtually, all questions answered Physical Exam Const: COMMON NORMALS: no acute distress and patient oriented x3 HENMT: COMMON NORMALS: normocephalic HEAD & SCALP: normocephalic Resp: COMMON NORMALS: normal respiratory effort, No retractions, No use of accessory muscles and clear to auscultation bilaterally AUSCULTATION: clear to auscultation bilaterally Cardio: COMMON NORMALS: regular rate, regular rhythm, S1 normal heart sound present and S2 normal heart sound present RATE: regular rate RHYTHM: regular rhythm HEART SOUNDS: S1 normal heart sound present and S2 normal heart sound present GI: COMMON NORMALS: Normal to inspection, nondistended, normoactive bowel sounds present, Soft to palpation, non-tender, No hepatosplenomegaly present, no masses and no bruits PALPATION: Yes Soft to palpation and Yes No hepatosplenomegaly present Extremity: COMMON NORMALS: no pedal edema Neuro: COMMON NORMALS: patient oriented x3 Discharge Data Data Completed and Pending: Completed Studies During Hospitalization Category Date Time Status CT abdomen pelvis w con* [id number] Urge nt Cat Scan 04/09/21 03:20 Completed XR abdomen min 2V [id number] Routine Exams 04/10/21 06:00 Completed XR chest 1V helene ble [id number] Routine Exams 04/09/21 22:44 Completed Pending at discharge Category Date Time Status Magnesium AM LABS Lab 04/11/21 04:00 Ordered Magnesium AM LABS Lab 04/12/21 04:00 Ordered Phosphorus AM LAB S Lab 04/11/21 04:00 Ordered Phosphorus AM LAB S Lab 04/12/21 04:00 Ordered Labs from last 24 hours 04/10/21 04/10/21 04/10/21 11:30 06:42 02:51 WBC RBC Hgb Hct MCV MCH MCHC RDW Plt Count MPV Neut % (Auto) Lymph % (Auto) Creek % (Auto) Eos % (Auto) Baso % (Auto) Neut # (Auto) Lymph # (Auto) Creek # (Auto) Eos # (Auto) Baso # (Auto) Nucleated RBC % (a uto) Nucleated RBCs # Sodium 143 Potassium 4.1 Chloride 106 Carbon Dioxide 30 H Anion Gap 11.1 BUN 17 Creatinine 0.7 GFR Calculation Not Reportable Glucose 123 H POC Glucose 151 H 124 H Calculated Osmolal ity 299 H Calcium 8.3 L Phosphorus Magnesium 04/10/21 04/10/21 04/09/21 02:51 02:51 21:33 WBC 6.7 RBC 4.09 L Hgb 13.4 Hct 40.9 L MCV 100.0 H MCH 32.8 MCHC 32.8 RDW 12.6 Plt Count 167 MPV 10.0 Neut % (Auto) 80.7 Lymph % (Auto) 8.8 Creek % (Auto) 7.6 Eos % (Auto) 1.9 Baso % (Auto) 0.6 Neut # (Auto) 5.38 Lymph # (Auto) 0.6 L Creek # (Auto) 0.5 Eos # (Auto) 0.1 Baso # (Auto) 0.0 Nucleated RBC % (a uto) 0 Nucleated RBCs # 0.0 Sodium Potassium Chloride Carbon Dioxide Anion Gap BUN Creatinine GFR Calculation Glucose POC Glucose 112 H Calculated Osmolal ity Calcium Phosphorus 2.8 Magnesium 2.2 Vitals: Last Vital Signs Temp 98.6 F 04/10/21 16:00 Pulse 63 04/10/21 16:00 Resp 16 04/10/21 16:00 BP 129/75 04/10/21 16:00 Pulse Ox 91 04/10/21 16:00 Discharge Plan Discharge Patient Disposition: Home Condition: Stable Prescriptions: New lactulose 20 gram packet 20 g PO BID 30 Days Qty: 30 RF: 0 polyethylene glycol 3350 [Miralax] 17 gram/dose powder 17 g PO DAILY 30 Days Qty: 238 RF: 0 Continued atorvastatin 40 mg tablet 40 mg PO BEDTIME RF: 0 metformin 500 mg tablet 500 mg PO BEDTIME RF: 0 carvedilol 6.25 mg tablet 6.25 mg PO BID RF: 0 Zyrtec 10 mg Tablet 10 mg PO QAM RF: 0 Aspir-81 81 mg Tablet,Delayed Release (Dr/Ec) 81 mg PO BEDTIME RF: 0 levothyroxine 25 mcg tablet 25 mcg PO QAM RF: 0 gabapentin 300 mg capsule 300 mg PO BID RF: 0 vitamin B complex Tablet 1 tab PO BID RF: 0 fluticasone propionate 50 mcg/actuation spray,suspension 2 spray INTRANASAL DAILY PRN (Reason: Allergy Symptoms) RF: 0 CoQ-10 100 mg Capsule 100 mg PO QAM RF: 0 Vitamin D3 50 mcg (2,000 unit) Capsule 2,000 unit PO QAM RF: 0 magnesium glycinate 100 mg Tablet 100 mg PO BID RF: 0 pantothenic acid (vit B5) 1 tab PO BID RF: 0 Discharge Orders: Discharge Order (Routine); Ordered 04/10/21 Ordered By: Abner Ponce Referrals: Pierre Byrd MD [Hospitalist] - 2 weeks (cystic lesion in the head of pancreas) Brendan Cormier MD [Primary Care Provider] - Discharge Diet: Clear Liquid Patient Instructions: Opioid Safety Activity Restrictions/Additional Instructions: -Advance diet as tolerated from clear liquids to GI soft diet -If you have recurrent abdominal pain go to the emergency room -For your cystic lesion in the head of the pancreas, I will have you follow-up with Dr. Byrd as outpatient Discharge Attestations Time Spent in Discharge Care*: less than 30 min Quality Metrics Clinical Quality Measures During this hospital stay, did patient experience: None Coding Level of Care Code Acute Chg FW DC note Diagnoses Small bowel obstruction K56.609
[2021-04-10 16:58] LABS: Glucose Point of Care 92 mg/dL (70-110)
[2021-04-10 17:32] VITALS: BP 129/75; PULSE 63; RESP 16; TEMP 37; O2SAT 91
--- NOTE | 2021-04-10 17:46 | PC.NURSE ---
patient verbalized understanding of discharge instructions, home medications, and need to make follow up appointments. patient escorted to ER entrance where he wanted to wait for his ride.
== END 2021-04-10 17:48 | disposition home or self-care (01) | DRG 389 ==
LOC: ER 05:24 → ER IP 05:35 → MEDSURG 12:13
PROVIDERS: Admitting Provider Internal Medicine; Emergency Provider Emergency Medicine; PCP Family Medicine; Visit Provider Family Medicine
DX: K56.51 Intestinal adhesions [bands], with partial obstruction (principal); K86.2 Cyst of pancreas; Z90.49 Acquired absence of other specified parts of digestive tract; Z86.010 Personal history of colon polyps; I10 Essential (primary) hypertension; K52.9 Noninfective gastroenteritis and colitis, unspecified; E78.5 Hyperlipidemia, unspecified; E03.9 Hypothyroidism, unspecified; L40.9 Psoriasis, unspecified; K59.00 Constipation, unspecified; E11.9 Type 2 diabetes mellitus without complications; I25.10 Atherosclerotic heart disease of native coronary artery without angina pectoris; Z79.84 Long term (current) use of oral hypoglycemic drugs; Z79.82 Long term (current) use of aspirin
CPT/HCPCS: 36415; 36416; 71045; 74019; 74177; 80048; 80053; 81001; 82962; 83605; 83690; 83735; 84100; 84443; 85025; 96361; 96372; 96374; 96375; 99285; C9113; J1170; J1650; J1815; J2060; J2405; J2543; J7030; Q9967

== ENCOUNTER 2021-04-15 09:48 | Outpatient (CLI) | payer MEDICARE, SELFPAY ==
--- NOTE | 2021-04-15 19:10 | ONC CON_ITS ---
Dr. Byrd New Patient Note Patient: Aleksandar Hoffman Unit #: [id number]: 1950 Dicatated By: Pierre Byrd M.D.Date of Visit: Apr 15, 2021 Onc MED New Patient/Consult Referring Physician: Abner Ponce Chief Complaint: Cystic lesions in pancreas. History of Present Illness: This is a 71-year-old man recently found on CT scan to have evidence of cystic lesions in the head of the pancreas. He has hypertension, hyperlipidemia, type 2 diabetes, and coronary artery disease. He has psoriasis, which he has managed adequately with a topical steroid. He has a history of having undergone sigmoid colectomy in 2002 for a benign stricture of the colon. The procedure apparently was complicated by an anastomotic leak requiring a temporary colostomy, but he ultimately did recover. On 04/09/2021 he was admitted to the hospital with evidence of small bowel obstruction. He presented to the emergency room with fairly acute onset of nausea/vomiting and abdominal pain. His CT abdomen/pelvis showed a short segment of small bowel wall thickening in the right lower quadrant with resulting obstruction of the small bowel proximally. There were no significant surrounding inflammatory changes. There was evidence of previous colorectal anastomosis and there was evidence of diverticulosis but without evidence of diverticulitis. Also noted on that study were cystic lesions in the pancreatic head measuring 2.0 cm and 0.8 cm. There was no pancreatic ductal dilatation seen and there was noted to be homogeneous enhancement of the pancreas. He improved clinically with conservative management, and he was discharged home on 04/10/2021. He is still feeling a little weak following his recent illness, but his energy is getting better. He is able to do light work. ECOG score is 1. He has been on a liquid diet, but he is now converting to solid foods. He does not have fever or night sweats. He does report having a little bit of sore throat and for the past year he has had a little trouble swallowing. He has some sinus drainage and occasionally has cough in the morning. He does not complain of shortness of breath or chest pain. He has had no further nausea/vomiting. He has a little bit of heartburn. Bowel function is okay now. His most recent colonoscopy was in 2016. He has urinary frequency with some urgency and he has nocturia. He has joint pain, mainly in his hands and knees, and he also has some chronic back pain. He very seldom has headache. He occasionally has dizziness. He has no numbness/paresthesia or other focal neurologic symptoms. Past Medical History: His medical history includes coronary artery disease, glaucoma, hyperlipidemia, hypertension, hypothyroidism, nephrolithiasis, psoriasis, and type II diabetes. Past Surgical History: His surgical/procedural history includes cataract excisions and glaucoma surgery in October 2020 in November 2020, left inguinal hernia repair in 2012, coronary angioplasty/stent placement in 2008, arthroscopic right knee surgery in 2004, sigmoid colectomy for benign stricture in 2002, lithotripsy in 1988, and tonsillectomy in 1954. Medications: Aspirin 1 Tablet (of 81 mg) Tablet, chewable Oral daily, Atorvastatin Calcium 1 Tablet (of 40 mg) Oral daily, B Complex 1 Tablet Oral b.i.d., Carvedilol 1 Tablet (of 6.25 mg) Oral b.i.d., Cetirizine HCl Capsule Oral PRN, Cholecalciferol 1 Capsule (of 125 mcg ) Tablet Oral daily, CO-Q 10 [place]-3 Fish Oil 1 Capsule Oral daily, EQL Fluticasone Propionate Suspension Nasal PRN, Gabapentin 1 Capsule (of 300 mg) Oral b.i.d., Glucophage 1 Tablet (of 500 mg) Oral daily, GlycoLax Powder Oral PRN, Lactulose Solution Oral PRN, Levothyroxine Sodium 1 Tablet (of 25 mcg) Oral daily, Magnesium 1 Capsule (of 100 mg) Oral b.i.d., Pantothenic Acid 1 Capsule (of 250 mg) Oral b.i.d. Allergies: Cephalexin Social History: Mr. Hoffman is . 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 He had smoked in the past, limited to recreational smoking in his early 20s. He also previously had some recreational alcohol use, but none since 1972. Family History: Father age 85 from complications after a fall. Mother had diabetes and age 84. A brother with a GI malignancy at age 76. His sister of lung cancer at age 65. Review Of Symptoms: Constitutional - He is still little weak following his recent illness, but he is getting better. He is able to do light work. He has still been on a liquid diet, but now converting to normal foods. He does not have fever or night sweats. ECOG score is 1, Eyes - He has had recent cataract surgery, ENMT - He has hearing loss and tinnitus. He has a little bit of sinus drainage. He also has had a little bit of sore throat and for the past year he has had a little trouble swallowing, Hematologic/Lymphatic - He has had some bruising, Respiratory - No shortness of breath. He occasionally has cough in the morning. No pleuritic pain or hemoptysis, Cardiovascular - No angina pain. No palpitations, Gastrointestinal - He has had no further nausea or vomiting. He has a little bit of heartburn. Bowels are okay now. No blood in the stool or black stools. His last colonoscopy was in 2016, Genitourinary (M) - No dysuria or hematuria. He has urinary frequency and urgency. He has nocturia x 3. No incontinence, Musculoskeletal - He has joint pain, mainly in the hands and knees. He also has back pain, Neurologic - He very seldom has headache. He occasionally has dizziness. No numbness or tingling. No other focal neurologic symptoms, Psychiatric - No anxiety or depression. He sleeps okay most of the time. Vital Signs: Performed on Apr 15, 2021 10:53: 4, 0, 32.77 (HIGH), 2.06 sq.m, 67 in, 96 %, 63 /min, 18 /min, 149/78 mm(hg) (HIGH), 98.7 F, and 209.2 lbs (HIGH). Physical Examination: Constitutional - He appears to be in good general health, Eyes - Sclerae nonicteric. Conjunctivae clear, ENMT - No lesions noted in the oral cavity, Neck - No mass or thyromegaly, Hematologic/Lymphatic - No cervical, clavicular, or axillary adenopathy, Respiratory - Lungs are clear with good air movement bilaterally, Cardiovascular - Heart rhythm is regular. There is no murmur, gallop, or rub noted, Abdomen - Soft and non-tender. Liver and spleen are not enlarged. There is no abdominal mass or ascites noted and there is no inguinal adenopathy, Back/Spine - No spine or CVA tenderness noted, Extremities - No edema. Pedal pulses are palpable bilaterally, Integumentary - No rashes. No suspicious skin lesions noted, Neurologic - No focal neurologic deficits noted. Problem List: 1. Patient with CT evidence of cystic lesions in the head of the pancreas measuring 2.0 cm and 0.8 cm. The clinical significance is uncertain. 2. He had recent hospitalization for small bowel obstruction, resolved with conservative management. 3. He has a prior history of sigmoid colectomy for benign stricture of the colon. 4. Hypertension. 5. Hyperlipidemia. 6. Type 2 diabetes. 7. Coronary artery disease with previous angioplasty/stent placement. 8. History of nephrolithiasis. 9. Glaucoma. 10. Psoriasis. Problems Addressed with this Encounter and Plan: 1. Patient with CT evidence of cystic lesions in the head of the pancreas measuring 2.0 cm and 0.8 cm. The clinical significance is uncertain. These may just be benign cysts or they could represent mucinous cystic neoplasms. He will require further evaluation with MRI, but I am going to confer with Dr. Heredia in [place] prior to scheduling any studies. I will arrange for referral as indicated. However, in all likelihood we will just be managing this expectantly. 2. He had recent hospitalization for small bowel obstruction, resolved with conservative management. This is almost certainly unrelated. Signed By: Pierre Byrd M.D. <<Signature on File>>
== END 2021-04-15 09:49 | disposition home or self-care (01) ==
PROVIDERS: PCP Family Medicine; Visit Provider Internal Medicine Medical Oncology
DX: K86.9 Disease of pancreas, unspecified (principal); Z87.19 Personal history of other diseases of the digestive system; Z90.49 Acquired absence of other specified parts of digestive tract; I10 Essential (primary) hypertension; E78.5 Hyperlipidemia, unspecified; E11.9 Type 2 diabetes mellitus without complications; I25.10 Atherosclerotic heart disease of native coronary artery without angina pectoris; Z95.5 Presence of coronary angioplasty implant and graft; Z87.442 Personal history of urinary calculi; H40.9 Unspecified glaucoma; L40.9 Psoriasis, unspecified
CPT/HCPCS: 99204

== ENCOUNTER → 2022-02-23 09:09 | Outpatient (BNVA) | payer MEDICARE, SELFPAY | PROVIDERS: PCP Family Medicine; Referring Provider Family Medicine; Visit Provider Podiatrist Foot & Ankle Surgery | DX: E11.21 Type 2 diabetes mellitus with diabetic nephropathy (principal); M20.41 Other hammer toe(s) (acquired), right foot; M20.42 Other hammer toe(s) (acquired), left foot; G57.61 Lesion of plantar nerve, right lower limb | CPT/HCPCS: 73630; 99204 ==

== ENCOUNTER → 2022-03-30 08:25 | Outpatient (BNVA) | payer MEDICARE, SELFPAY | PROVIDERS: PCP Family Medicine; Referring Provider Family Medicine; Visit Provider Nurse Practitioner Family | DX: R39.9 Unspecified symptoms and signs involving the genitourinary system (principal); N50.89 Other specified disorders of the male genital organs | CPT/HCPCS: 51741; 51798; 81003; 99203 ==

== ENCOUNTER 2022-04-21 08:10 | Outpatient (CLI) | payer MEDICARE, SELFPAY ==
--- NOTE | 2022-04-21 08:00 | US_ITS ---
WS: [id number] TESTICULAR ULTRASOUND HISTORY: SCROTAL MASS COMPARISON: None available. TECHNIQUE: Real-time and color Doppler imaging or utilized to perform a testicular ultrasound. Right testicle: 3.9 cm x 3.3 cm x 2.3 cm. Normal size and echogenicity. No mass or torsion. Normal color Doppler is present throughout. Systolic and diastolic velocities are both present. Small simple hydrocele. Right epididymis: Large cystic mass with adjacent smaller cysts in the RIGHT epididymis. The largest cyst is 2.9 x 1.8 x 3.6 cm. No increased vascularity. Left testicle: 4.3 cm x 2.7 cm x 2.2 cm. Normal size and echogenicity. No mass or torsion. Normal color Doppler is present throughout. Systolic and diastolic velocities are both present. Small simple hydrocele. Left epididymis: Normal epididymis with no increased vascularity. Small spermatocele. US/US scrotum 73499 IMPRESSION: 1. No testicular mass or torsion. 2. Multiple, various sizes cystic masses associated with the RIGHT epididymis. Most consistent with spermatoceles. 3. Small bilateral hydroceles, LEFT greater than RIGHT.
== END 2022-04-21 08:11 | disposition home or self-care (01) ==
LOC: RAD 08:11
PROVIDERS: PCP Family Medicine; Visit Provider Urology
DX: N50.89 Other specified disorders of the male genital organs (principal); N43.3 Hydrocele, unspecified; R39.9 Unspecified symptoms and signs involving the genitourinary system; R68.89 Other general symptoms and signs; R97.20 Elevated prostate specific antigen [PSA]; N43.40 Spermatocele of epididymis, unspecified; N50.82 Scrotal pain; R97.21 Rising PSA following treatment for malignant neoplasm of prostate
CPT/HCPCS: 51741; 51798; 76870; 81003; 84153; 99214

== ENCOUNTER → 2022-04-29 13:02 | Outpatient (BNVA) | payer MEDICARE, SELFPAY | PROVIDERS: PCP Family Medicine; Visit Provider Urology | DX: R97.20 Elevated prostate specific antigen [PSA] (principal); R68.89 Other general symptoms and signs | CPT/HCPCS: 55700; 76872; 76942; 88305; 96372; J1580 ==

== ENCOUNTER → 2022-05-19 08:08 | Outpatient (BNVA) | payer MEDICARE, SELFPAY | PROVIDERS: PCP Family Medicine; Visit Provider Family Medicine | DX: E03.9 Hypothyroidism, unspecified (principal); I25.10 Atherosclerotic heart disease of native coronary artery without angina pectoris; I10 Essential (primary) hypertension; E11.9 Type 2 diabetes mellitus without complications | CPT/HCPCS: 80053; 80061; 83036; 84443 ==

== ENCOUNTER 2022-05-20 06:54 | Outpatient (CLI) | payer MEDICARE, SELFPAY ==
--- NOTE | 2022-05-20 07:00 | CT_ITS ---
WS: [id number] CT ABDOMEN AND PELVIS WITH AND WITHOUT CONTRAST HISTORY: Elevated PSA, Abnormal digital rectal exam TECHNIQUE: Unenhanced 5 mm axial imaging first performed through the abdomen. Post contrast imaging t hrough the abdomen and pelvis. Oral contrast has been provided. Sagittal and coronal reformats are s ubmitted. All CT scans at [facility] use at least one of these dose optimization techniques: automated exposure control; mA and/or kV adjustment per patient size (includes targeted exams where d ose is matched to clinical indication); or iterative reconstruction. CONTRAST: Omnipaque 350; 95 mL IV. DLP: 3863.66 mGy.cm COMPARISON: 04/09/2021 Lung bases are clear. No cardiomegaly. Small hiatal hernia. RIGHT kidney: Mild perinephric stranding. No mass or calcification. No obstruction. No uroepithelial filling defect identified within the ureter. The ureter is not completely distended with IV contrast. LEFT kidney: Mild perinephric stranding and normal size. No calcification or solid mass. No obstructi on. Cortical 5 mm cyst mid kidney. No filling defects in the uroepithelial system. The RIGHT ureter i s slightly greater than the LEFT but no hydronephrosis or hydroureter. Urinary bladder: Only minimally distended urinary bladder with diffuse wall thickening. On the postco ntrast examination no focal area of abnormal enhancement. The wall remains mildly thickened which may be due to outlet obstruction. Prostate gland is slightly encroaches into the urinary bladder. Prosta te measures 4.2 x 3.7 extends over length of 4.3 cm. Unremarkable spleen, liver and gallbladder. Portal vein is normally enhancing. Pancreas is atrophied and mildly heterogeneous throughout. Again noted are multiple cystic masses involving the uncinate pr ocess and pancreatic head towards the neck. The largest in the uncinate process measures 18 x 14 mm a nd was present on the prior study without increase in size. At least one of these cystic areas does a ppear to connect to the pancreatic duct. No duct dilatation. No adrenal mass. Normally distended stomach. No small bowel obstruction. The appendix is not identified. Mild diffuse fecal retention throughout the colon. Small diverticula are noted in the sigmoid. Anastomotic sutures at the rectosigmoid junction are identified. There is no obstruction. There is very minimal wall thi ckening but no discrete mass identified at the rectum by CT. Abdominal aorta: Mild atherosclerotic plaque within the aorta. LEFT spigelian hernia contains omental fat. There is a defect in the transversus abdominis and the in ternal oblique muscle. The external oblique aponeurosis may be intact. Similar finding as the prior s tudy. Multiple small supraumbilical hernias containing fat only. No adenopathy. No ascites within the abdomen or pelvis. Fluid-filled LEFT iliopsoas bursa measures 2.0 x 1.7 cm is p robably related to degenerative changes at the hips. There is at least moderate degenerative joint di sease at the hips. Small amount of fluid in the RIGHT scrotal sac. CT/CT abdomen pelvis wo/w [id number] IMPRESSION: 1. No renal mass or obstruction. 2. Partially distended urinary bladder with mild wall thickening. Wall thicken ing is probably due to outlet obstruction or partial distention. No enhancing m ass. 3. Mildly heterogeneous lobulated prostate gland. 4. Rectosigmoid anastomotic sutures are stable. No obstruction. No recurrent m ass identified by CT. 5. No adenopathy or ascites. 6. Multiple cystic masses are stable since 04/09/2021 involving the pancreatic u ncinate process, head and neck. The largest measures 18 x 14 at the uncinate pr ocess. These may all be related to IPMN. Recommend 6 month follow-up by MRI or CT with contrast to document stability. 7. LEFT spigelian hernia. 8. Additional multiple (4) supraumbilical abdominal wall hernias containing fa t only. 9. Small fluid-filled LEFT iliopsoas bursa.
[2022-05-20] MEDS: iohexol 350 mg/mL 100 mL Btl IV (07:22)
== END 2022-05-20 06:55 | disposition home or self-care (01) ==
LOC: RAD 06:55
PROVIDERS: PCP Family Medicine; Visit Provider Urology
DX: R68.89 Other general symptoms and signs (principal); R97.20 Elevated prostate specific antigen [PSA]; N32.89 Other specified disorders of bladder; K42.9 Umbilical hernia without obstruction or gangrene; K86.2 Cyst of pancreas
CPT/HCPCS: 74178

== ENCOUNTER 2022-05-25 08:31 | Outpatient (CLI) | payer MEDICARE, SELFPAY ==
--- NOTE | 2022-05-25 08:40 | NM_ITS ---
WS: [id number] NUCLEAR MEDICINE BONE SCAN Radiopharmaceutical: 24.2 Tc-99m MDP mCi IV Injection site: Antecubital Postinjection imaging delay: 1 hr CLINICAL INFORMATION: Elevated PSA, Abnormal Digital Rectal Exam COMPARISON: CT May 20, 2022 FINDINGS: Bone lesions: There are no osseous lesions suspicious for metastatic disease. Soft tissue contours: Normal. Kidneys: Normal. Other findings: Degenerative type uptake in both AC joints and sternoclavicular joints. Degenerative type uptake in the RIGHT greater than LEFT knees.Degenerative Arthritis LEFT hip. NM/NM bone scan whole body* [id number] IMPRESSION: No evidence of osseous metastatic disease.
== END 2022-05-25 08:32 | disposition home or self-care (01) ==
PROVIDERS: PCP Family Medicine; Visit Provider Urology
DX: R97.20 Elevated prostate specific antigen [PSA] (principal); R68.89 Other general symptoms and signs
CPT/HCPCS: 78306; A9561

== ENCOUNTER → 2022-05-26 15:20 | Outpatient (BNVA) | payer MEDICARE, SELFPAY | PROVIDERS: PCP Family Medicine; Visit Provider Urology | DX: C61 Malignant neoplasm of prostate (principal) | CPT/HCPCS: 99213 ==

== ENCOUNTER 2022-06-02 08:51 | Oncology outpatient (recurring) (ONCR) | payer MEDICARE, SELFPAY ==
--- NOTE | 2022-06-02 11:41 | N.ONRAD NP_ITS ---
Radiation Oncology New Patient Visit Patient: Aleksandar Hoffman MR#: [id number] : 1950> Age: 72> Sex: Male> Dictated by: Dr. Kaushik Bill Date of Service: 06/02/2022 Referring Physician(s) : Dr. Saenz Diagnosis: R93.5 -prostate, adenocarcinoma, [place] 4+5 equal 9, Grade Group 5, Risk Group very high , stage T2c or T3N0M0 Radiotherapy to date: Summary > No prior radiation therapy. Chief Complaint / History of Present Illness: Mr. Hoffman was referred to Dr. Saenz because of LUTS. He was experiencing frequency through the day as well as nocturia x3 or 4. On exam he was noted to have nodularity and induration over a large part of the right lobe of the prostate. PSA was obtained and was 24.9. Based on these findings he underwent a biopsy. At the time of biopsy the prostate volume was approximately 38 cc. A hypoechoic area was noticed in the area of induration of the gland. The hypoechoic area extended from the mid gland up to the base. 13 cores were obtained. The pathology report showed a Geronimo score of 4+5 in 1 core and Geronimo score 4+4 in 7 cores. Extensive perineural invasion was noted and in the right lateral mid gland there were findings suspicious for extraprostatic extension. Mr. Hoffman underwent a bone scan 05/25/[address] of the abdomen and pelvis 05/20/2022. He did not have any evidence of bone metastases or lymphadenopathy. He did have cystic masses in the head of the pancreas area which were felt to be stable. Dr. Saenz's started Mr. Hoffman on bicalutamide. He is referring him to Dr. Byrd for LHRH agonist therapy. He will see Dr. Byrd 06/11/2022. He is referred for evaluation and discussion of radiation. He is on tamsulosin 2 each evening and his obstructive symptoms have improved significantly. Current Medications: Aspirin, atorvastatin Calcium, b Complex, carvedilol, cetirizine HCl, cholecalciferol, cO-Q 10 [place]-3 Fish Oil, eQL Fluticasone Propionate, gabapentin, glucophage, glycoLax, lactulose, levothyroxine Sodium, magnesium, pantothenic Acid. Allergies: Cephalexin. Medical History: Coronary artery disease, glaucoma, hyperlipidemia, hypertension, hypothyroidism, nephrolithiasis, psoriasis, type II diabetes. No history of collagen vascular disease. No previous radiation therapy. Surgical History: Arthroscopic right knee surgery in 2004, cataract excisions and glaucoma surgery in October 2020 in November 2020, coronary angioplasty/stent placement in 2008, covid vaccine #1 in 02/2021, covid vaccine #2 in 03/2021, left inguinal hernia repair in 2012, lithotripsy in 1988, sigmoid colectomy for benign stricture in 2002 and tonsillectomy in 1954. Family History: Father is at age 85. Mother is at age 84. Brother is at age 76. Sister is at age 69. Father age 85 from complications after a fall. Mother had diabetes and age 84. A brother with a GI malignancy at age 76. His sister of lung cancer at age 65. Social History: Last screened on 04/14/2021 - Never smoked. Last screened on 04/14/2021 - Never drank. Current Complaints / Review of Systems: . Vital Signs: Performed on 06/02/2022 8:57 AM BMI - 32.515 kg/m2 (high), Height - 67 in, Weight - 207.6 lbs, Temperature - 97.2 f, Pulse - 58 /min (low), Respiration - 20 /min, O2 Sat - 96 %, Pain - 0, Fatigue - 0 and BP - 120/ 66 mm(hg). Physical Exam: General: Alert, oriented, no acute distress Neck: Supple. No cervical or supraclavicular lymphadenopathy. Lungs: Clear to percussion. On auscultation no rales, rhonchi, or wheezes. Heart: Regular rhythm. No murmur, gallop, or rub. Abdomen: No distention. No organomegaly, mass, or tenderness. Rectal: Normal sphincter tone. No external lesions. The prostate feels normal in size but the right lower portion of the gland is very indurated. The lower left lobe also feels indurated. I do not detect a specific nodule. Performance Status: ECOG 0 Pathology: Primary, r93.5 - abnormal findings on diagnostic imaging of other abdominal regions, including retroperitoneum, Diagnosed 04/15/2021 (active). Lab: PSA 24.9 Imaging: See HPI Impression: High-grade, very high risk carcinoma the prostate. Mr. Hoffman is a candidate for combined modality therapy with external beam radiation and hormonal therapy. I told him that surgery might be offered at some centers, but that it would be almost certain that he would have extensive positive margins and require hormonal therapy and radiation anyway. In consultation with Dr. Saenz he has concluded that he should not undergo surgery, and I agree with this decision. He will see Dr. Byrd 06/11/2022 to initiate hormonal therapy (he is already on bicalutamide). I recommended radiation start 2 months later in early August. I discussed a course of external beam including side effects and possible complications. The patient's asked very specific questions about the side effects during treatment as well as the risks after treatment. I discussed all of those issues in detail. Patient does have a history of colon resection for obstruction. There was no malignancy. I told him that may increase his risk of bowel injury from radiation. The patient wishes to proceed as recommended. Plan: Simulation in late July. Signed by: 06/02/2022 11:40:43 AM <<Signature on File>> Time spent with patient: CPT Code: CPT Code:
== END 2022-06-07 23:59 | disposition home or self-care (01) ==
PROVIDERS: PCP Family Medicine; Visit Provider Specialist
DX: C61 Malignant neoplasm of prostate; R35.0 Frequency of micturition; R35.1 Nocturia; E11.59 Type 2 diabetes mellitus with other circulatory complications; I25.10 Atherosclerotic heart disease of native coronary artery without angina pectoris; I10 Essential (primary) hypertension; E78.5 Hyperlipidemia, unspecified; E03.9 Hypothyroidism, unspecified; Z79.818 Long term (current) use of other agents affecting estrogen receptors and estrogen levels; Z79.899 Other long term (current) drug therapy
CPT/HCPCS: 99204; 99205; 99214

== ENCOUNTER 2022-06-11 10:22 | Oncology outpatient (recurring) (ONCR) | payer MEDICARE, SELFPAY ==
[2022-06-11] MEDS: leuprolide 22.5 mg Kit IM (12:34)
== END 2022-07-08 23:59 | disposition home or self-care (01) ==
PROVIDERS: PCP Family Medicine; Visit Provider Specialist
DX: C61 Malignant neoplasm of prostate; Z87.891 Personal history of nicotine dependence; Z79.818 Long term (current) use of other agents affecting estrogen receptors and estrogen levels; Z79.899 Other long term (current) drug therapy
CPT/HCPCS: 96402; 99215; J9217

== ENCOUNTER 2022-08-07 08:16 | Oncology outpatient (recurring) (ONCR) | payer MEDICARE, SELFPAY ==
[2022-07-23 12:04] LABS: Basophils % 0.8 %; Eosinophils # 0.2 10^3/uL (0.0-0.8); Eosinophils % 3.8 %; Hematocrit 39.6 % (42.0-52.0); Hemoglobin 13.4 g/dL (11.7-16.6); Lymphocytes # 0.9 10^3/uL (0.8-4.8); Lymphocytes % 18.4 %; Mean Corpuscular HGB Conc 33.8 g/dL (30.0-36.0); Mean Corpuscular Hemoglobin 33.1 pg (28.0-34.0); Mean Corpuscular Volume 97.8 fl (80-94); Mean Platelet Volume 9.9 fL (7.4-10.4); Monocytes # 0.4 10^3/uL (0.2-0.9); Monocytes % 9.2 %; Neutrophils # 3.21 10^3/uL (1.8-7.7); Nucleated Red Blood Cells % 0 %; Platelet Count 169 10^3/cmm (130-400); Red Blood Count 4.05 10^6/uL (4.1-5.3); White Blood Count 4.8 10^3/uL (4.0-10.0)
[2022-07-23 12:25] LABS: Alanine Aminotransferase 32 U/L (0-41); Albumin Level 4.1 g/dL (3.5-5.2); Alkaline Phosphatase 84 U/L (40-130); Anion Gap 16.3 (5-19); Aspartate Amino Transferase 31 U/L (0-40); Blood Urea Nitrogen 22 mg/dL (8-23); Calcium 9.2 mg/dL (8.5-10.5); Carbon Dioxide 25 mmol/L (22-29); Chloride 106 mmol/L (98-107); Globulin 2.4 g/dL (1.3-4.6); Glucose 156 mg/dL (65-115); Osmolality Calculated 303 mOsm/kg (285-295); Potassium 4.3 mmol/L (3.5-5.1); Sodium 143 mmol/L (136-145); Total Bilirubin 0.8 mg/dL (0.15-1.2); Total Protein 6.5 g/dL (6.6-8.7)
[2022-07-23 13:19] LABS: Prostate Specific Antigen 0.459 ng/mL (0-4)
--- NOTE | 2022-07-29 | CT_ITS ---
Radiation Therapy Planning CT images; total exam DLP: 1307.82 mGy-cm MTDD
--- NOTE | 2022-08-04 15:51 | ONCRAD TMN_ITS ---
Radiation Oncology Treatment Management Note Patient Name: Aleksandar Hoffman Date of : 1950 Date of Service: 08/04/2022 Attending Physician: Graham Zapien M.D. 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 He initially was identified to have an elevated PSA level (24.9 ng/mL) in April by his primary care physician. He was referred to Luciano Saenz M.D. A digital rectal exam revealed a right prostatic lobe nodule. A transrectal ultrasound-guided biopsy performed on March 29, 2022 revealed a 38 cc prostate gland with a hypoechoic lesion in the right lobe. The pathology report diagnosed an adenocarcinoma the prostate gland with a Geronimo score of 4+5 = 9 (grade group 5) involving the right base (95%), A nuclear medicine bone scintigraphy scan and an abdominopelvic CT scan metastatic disease did not identify metastatic disease. A GnRH agonist (Eligard) was administered on June 11, 2022. The patient has received 4 Gy of a prescribed 46 Wong to the prostate and regional lymph nodes with an intensity modulated radiotherapy plan utilizing a step and shoot treatment technique. An additional 32 Wong will be delivered to the prostate gland subsequent to the initial castro. Upon review of systems, he denied any genitourinary complaints related to radiotherapy. On physical examination, the patient weighed 204 lbs. His temperature was 97.6 ???F and the blood pressure was 149/75 mmHg. The pulse was 65 bpm and his respiratory rate was 20. There was no erythema within the treatment castro. Continue pelvic radiotherapy as prescribed. Signed by: Dr. Graham Zapien 08/04/2022 3:49:45 PM
== END 2022-08-07 23:59 | disposition home or self-care (01) ==
PROVIDERS: Nurse Practitioner; PCP Family Medicine; Visit Provider Radiology Radiation Oncology
DX: Z51.0 Encounter for antineoplastic radiation therapy (principal); C61 Malignant neoplasm of prostate
CPT/HCPCS: 36415; 77300; 77301; 77334; 77338; 77385; 77470; 80053; 84153; 85025; Q9967

== ENCOUNTER 2022-09-07 15:46 | Oncology outpatient (recurring) (ONCR) | payer MEDICARE, SELFPAY ==
--- NOTE | 2022-08-11 16:18 | ONCRAD TMN_ITS ---
Radiation Oncology Treatment Management Note Patient Name: Aleksandar Hoffman Date of : 1950 Date of Service: 08/11/2022 Attending Physician: Graham Zapien M.D. 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 He initially was identified to have an elevated PSA level (24.9 ng/mL) in April by his primary care physician. He was referred to Luciano Saenz M.D. A digital rectal exam revealed a right prostatic lobe nodule. A transrectal ultrasound-guided biopsy performed on March 29, 2022 revealed a 38 cc prostate gland with a hypoechoic lesion in the right lobe. The pathology report diagnosed an adenocarcinoma the prostate gland with a Geroinmo score of 4+5 = 9 (grade group 5) involving the right base (95%), A nuclear medicine bone scintigraphy scan and an abdominopelvic CT scan metastatic disease did not identify metastatic disease. A GnRH agonist (Eligard) was administered on June 11, 2022. The patient has received 14 Gy of a prescribed 46 Wong to the prostate and regional lymph nodes with an intensity modulated radiotherapy plan utilizing a step and shoot treatment technique. An additional 32 Wong will be delivered to the prostate gland subsequent to the initial castro. Upon review of systems, he described nocturia. On physical examination, the patient weighed 203 lbs. His temperature was 97.9 ???F and the blood pressure was 137/71 mmHg. The pulse was 61 bpm and his respiratory rate was 16. There was no erythema within the treatment castro. Continue pelvic radiotherapy as planned. I have recommended an NSAID trial for LUTS. Signed by: Dr. Graham Zapien 08/11/2022 4:16:49 PM
--- NOTE | 2022-08-19 08:45 | ONCRAD TMN_ITS ---
Radiation Oncology Treatment Management Note Patient Name: Aleksandar Hoffman Date of : 1950 Date of Service: 08/18/2022 Attending Physician: Graham Zapien M.D. 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 He initially was identified to have an elevated PSA level (24.9 ng/mL) in April by his primary care physician. He was referred to Luciano Saenz M.D. A digital rectal exam revealed a right prostatic lobe nodule. A transrectal ultrasound-guided biopsy performed on March 29, 2022 revealed a 38 cc prostate gland with a hypoechoic lesion in the right lobe. The pathology report diagnosed an adenocarcinoma the prostate gland with a Geronimo score of 4+5 = 9 (grade group 5) involving the right base (95%), A nuclear medicine bone scintigraphy scan and an abdominopelvic CT scan metastatic disease did not identify metastatic disease. A GnRH agonist (Eligard) was administered on June 11, 2022. The patient has received 24 Gy of a prescribed 46 Gy to the prostate and regional lymph nodes with an intensity modulated radiotherapy plan utilizing a step and shoot treatment technique. An additional 32 Gy will be delivered to the prostate gland subsequent to the initial castro. Upon review of systems, the nocturia has improved with NSAID. On physical examination, the patient weighed 204 lbs. His temperature was 98.1 ???F and the blood pressure was 151/81 mmHg. The pulse was 66 bpm and his respiratory rate was 18. There was no erythema within the treatment castro. Continue pelvic radiotherapy as prescribed. Signed by: Dr. Graham Zapien 08/19/2022 8:44:00 AM
--- NOTE | 2022-08-26 09:17 | ONCRAD TMN_ITS ---
Radiation Oncology Treatment Management Note Patient Name: Aleksandar Hoffman Date of : 1950 Date of Service: 08/25/2022 Attending Physician: Graham Zapien M.D. 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 He initially was identified to have an elevated PSA level (24.9 ng/mL) in April by his primary care physician. He was referred to Luciano Saenz M.D. A digital rectal exam revealed a right prostatic lobe nodule. A transrectal ultrasound-guided biopsy performed on March 29, 2022 revealed a 38 cc prostate gland with a hypoechoic lesion in the right lobe. The pathology report diagnosed an adenocarcinoma the prostate gland with a Geronimo score of 4+5 = 9 (grade group 5) involving the right base (95%), A nuclear medicine bone scintigraphy scan and an abdominopelvic CT scan metastatic disease did not identify metastatic disease. A GnRH agonist (Eligard) was administered on June 11, 2022. The patient has received 34 Gy of a prescribed 46 Gy to the prostate and regional lymph nodes with an intensity modulated radiotherapy plan utilizing a step and shoot treatment technique. An additional 32 Gy will be delivered to the prostate gland subsequent to the initial castro. Upon review of systems, he continues to describe tenesmus. On physical examination, the patient weighed 200 lbs. His temperature was 97.5 ???F and the blood pressure was 110/67 mmHg. The pulse was 95 bpm and his respiratory rate was 16. There was no erythema within the treatment castro. Continue pelvic radiotherapy as planned. Continue OTC anti-hemorrhoidal therapy. Signed by: Dr. Graham Zapien 08/26/2022 9:16:19 AM
--- NOTE | 2022-09-02 07:55 | ONCRAD TMN_ITS ---
Radiation Oncology Treatment Management Note Patient Name: Aleksandar Hoffman Date of : 1950 Date of Service: 09/01/2022 Attending Physician: Graham Zapien M.D. 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 He initially was identified to have an elevated PSA level (24.9 ng/mL) in April by his primary care physician. He was referred to Luciano Saenz M.D. A digital rectal exam revealed a right prostatic lobe nodule. A transrectal ultrasound-guided biopsy performed on March 29, 2022 revealed a 38 cc prostate gland with a hypoechoic lesion in the right lobe. The pathology report diagnosed an adenocarcinoma the prostate gland with a Geronimo score of 4+5 = 9 (grade group 5) involving the right base (95%), A nuclear medicine bone scintigraphy scan and an abdominopelvic CT scan metastatic disease did not identify metastatic disease. A GnRH agonist (Eligard) was administered on June 11, 2022. The patient has received 44 Gy of a prescribed 46 Gy to the prostate and regional lymph nodes with an intensity modulated radiotherapy plan utilizing a step and shoot treatment technique. An additional 32 Gy will be delivered to the prostate gland subsequent to the initial castro. Upon review of systems, there were no new complaints. On physical examination, the patient weighed 203 lbs. His temperature was 97.4 ???F and the blood pressure was 133/80 mmHg. The pulse was 70 bpm and his respiratory rate was 18. There was no erythema within the treatment castro. Continue pelvic radiotherapy as prescribed. Signed by: Dr. Graham Zapien 09/02/2022 7:53:28 AM
== END 2022-09-07 23:59 | disposition home or self-care (01) ==
PROVIDERS: PCP Family Medicine; Visit Provider Radiology Radiation Oncology
DX: Z51.0 Encounter for antineoplastic radiation therapy (principal); C61 Malignant neoplasm of prostate
CPT/HCPCS: 77300; 77336; 77338; 77385

== ENCOUNTER 2022-09-28 14:00 | Oncology outpatient (recurring) (ONCR) | payer MEDICARE, SELFPAY ==
--- NOTE | 2022-09-08 15:52 | ONCRAD TMN_ITS ---
Radiation Oncology Treatment Management Note Patient Name: Aleksandar Hoffman Date of : 1950 Date of Service: 09/08/2022 Attending Physician: Graham Zapien M.D. 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 He initially was identified to have an elevated PSA level (24.9 ng/mL) in April by his primary care physician. He was referred to Luciano Saenz M.D. A digital rectal exam revealed a right prostatic lobe nodule. A transrectal ultrasound-guided biopsy performed on March 29, 2022 revealed a 38 cc prostate gland with a hypoechoic lesion in the right lobe. The pathology report diagnosed an adenocarcinoma the prostate gland with a Geronimo score of 4+5 = 9 (grade group 5) involving the right base (95%), A nuclear medicine bone scintigraphy scan and an abdominopelvic CT scan metastatic disease did not identify metastatic disease. A GnRH agonist (Eligard) was administered on June 11, 2022. The patient has received 54 Gy of a prescribed 78 Gy to the prostate and seminal vesicles. Upon review of systems, there were no significant changes. On physical examination, the patient weighed 200 lbs. His temperature was 97.2 ???F and the blood pressure was 130/77 mmHg. The pulse was 70 bpm and his respiratory rate was 18. There was no erythema within the treatment castro. Continue pelvic radiotherapy as planned. Signed by: Dr. Graham Zapien 09/08/2022 3:51:12 PM
--- NOTE | 2022-09-15 16:05 | ONCRAD TMN_ITS ---
Radiation Oncology Treatment Management Note Patient Name: Aleksandar Hoffman Date of : 1950 Date of Service: 09/15/2022 Attending Physician: Graham Zapien M.D. 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 He initially was identified to have an elevated PSA level (24.9 ng/mL) in April by his primary care physician. He was referred to Luciano Saenz M.D. A digital rectal exam revealed a right prostatic lobe nodule. A transrectal ultrasound-guided biopsy performed on March 29, 2022 revealed a 38 cc prostate gland with a hypoechoic lesion in the right lobe. The pathology report diagnosed an adenocarcinoma the prostate gland with a Geronimo score of 4+5 = 9 (grade group 5) involving the right base (95%), A nuclear medicine bone scintigraphy scan and an abdominopelvic CT scan metastatic disease did not identify metastatic disease. A GnRH agonist (Eligard) was administered on June 11, 2022. The patient has received 64 Gy of a prescribed 78 Gy to the prostate and seminal vesicles. Upon review of systems, there were no new complaints. On physical examination, the patient weighed 200 lbs. His temperature was 98 ???F and the blood pressure was 128/77 mmHg. The pulse was 62 bpm and his respiratory rate was 16. There was no erythema within the treatment castro. Continue pelvic radiotherapy as prescribed. Signed by: Dr. Graham Zapien 09/15/2022 4:03:51 PM
--- NOTE | 2022-09-22 15:39 | ONCRAD TMN_ITS ---
Radiation Oncology Treatment Management Note Patient Name: Aleksandar Hoffman Date of : 1950 Date of Service: 09/22/2022 Attending Physician: Graham Zapien M.D. 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 He initially was identified to have an elevated PSA level (24.9 ng/mL) in April by his primary care physician. He was referred to Luciano Saenz M.D. A digital rectal exam revealed a right prostatic lobe nodule. A transrectal ultrasound-guided biopsy performed on March 29, 2022 revealed a 38 cc prostate gland with a hypoechoic lesion in the right lobe. The pathology report diagnosed an adenocarcinoma the prostate gland with a Geronimo score of 4+5 = 9 (grade group 5) involving the right base (95%), A nuclear medicine bone scintigraphy scan and an abdominopelvic CT scan metastatic disease did not identify metastatic disease. A GnRH agonist (Eligard) was administered on June 11, 2022. The patient has received 74 Gy of a prescribed 78 Gy to the prostate and seminal vesicles. Upon review of systems, there were not new GI or complaints. On physical examination, the patient weighed 206 lbs. His temperature was 96.9 ???F and the blood pressure was 152/76 mmHg. The pulse was 55 bpm and his respiratory rate was 16. There was no erythema within the treatment castro. Continue pelvic radiotherapy as planned. Signed by: Dr. Graham Zapien 09/22/2022 3:38:35 PM
--- NOTE | 2022-09-24 15:29 | N.ONRD TS_ITS ---
Radiation OncologyTreatment Summary Patient Name: Aleksandar Hoffman Date of : 1950 Date of Service: 09/24/2022 Attending Physician: Graham Zapien M.D. Aleksandar Hoffman has completed definitive prostate radiotherapy for the management of a clinical stage IIIC (T2bN0) high-risk prostate cancer. He initially was identified to have an elevated PSA level (24.9 ng/mL) in April by his primary care physician. He was referred to Luciano Saenz M.D. A digital rectal exam revealed a right prostatic lobe nodule. A transrectal ultrasound-guided biopsy performed on March 29, 2022 revealed a 38 cc prostate gland with a hypoechoic lesion in the right lobe. The pathology report diagnosed an adenocarcinoma the prostate gland with a Geronimo score of 4+5 = 9 (grade group 5) involving the right base (95%), A nuclear medicine bone scintigraphy scan and an abdominopelvic CT scan metastatic disease did not identify metastatic disease. A GnRH agonist (Eligard) was administered on June 11, 2022. Pelvic radiation therapy was delivered between the dates of August 03, 2022 through September 24, 2022. A prescribed dose of 78 Gy was delivered in 39 fractions encompassing 53 elapsed days. The prostate gland, seminal vesicles, and regional lymph node stations were treated utilizing an intensity modulated radiotherapy plan with a step and shoot treatment technique. The plan arranged nine gantry angles (0???, 30???, 70???, 110???, 150???, 230???, 260???, 300???, and 330???) replicating an arc. The collimator rotation was 0???. The field sizes spanned between 17.9 cm x 16.8 cm to 21.6 cm x 16.5 cm. The SSD measured a minimum of 79.6 cm to a maximum of 86.4 cm. The ports delivered 275 MU, 221 MU, 243 MU, 245 MU, 230 MU, 255 MU, 271 MU, 243 MU, and 221 MU corresponding to the gantry angles described. The initial castro began on August 03, 2022 and continued through September 02, 2022. A prescribed dose of 46 Wong was administered 23 fractions over 31 elapsed days. The prostate gland and seminal vesicles were subsequently treated incorporating and intensity modulated radiotherapy plan with a step and shoot treatment technique. The plan designed nine gantry angles (0???, 30???, 70???, 110???, 150???, 230???, 260???, 300???, and 330???) replicating an arc. The collimator rotation was 0???. The castro measured between 9.5 cm x 8.6 cm to 10.6 cm x 8.8 cm. The measured SSD were 79.8 cm to 87.3 cm. The ports allocated 144 MU, 148 MU, 114 MU, 103 MU, 133 MU, 106 MU, 120 MU, 107 MU, and 151 MU corresponding to the gantry angles described. The reduced ports started on September 03, 2022 and concluded on September 24, 2022. An additional 32 Gy was allocated in 16 fractions over 22 elapsed days. All treatments were performed with the Dimeres linear accelerator and an isocentric technique. High energy photons were prescribed. The dose was calculated by Anisotropic Analytic Algorithm with the plan normalized to deliver 100% of the prescription dose to 95% of the planning target volume (phase I) and 100% of the prescription dose to 98% of the PTV (phase II). Signed by: Dr. Graham Zapien 09/24/2022 3:28:05 PM
[2022-09-28 13:51] LABS: Basophils % 0.9 %; Eosinophils # 0.2 10^3/uL (0.0-0.8); Eosinophils % 4.7 %; Hematocrit 38.6 % (42.0-52.0); Hemoglobin 13.1 g/dL (11.7-16.6); Lymphocytes # 0.4 10^3/uL (0.8-4.8); Lymphocytes % 7.7 %; Mean Corpuscular HGB Conc 33.9 g/dL (30.0-36.0); Mean Corpuscular Hemoglobin 33.9 pg (28.0-34.0); Mean Corpuscular Volume 99.7 fl (80-94); Mean Platelet Volume 8.9 fL (7.4-10.4); Monocytes # 0.5 10^3/uL (0.2-0.9); Monocytes % 11.3 %; Neutrophils % 74.5 %; Nucleated Red Blood Cells % 0 %; Platelet Count 154 10^3/cmm (130-400); Red Blood Count 3.87 10^6/uL (4.1-5.3); Red Cell Distribution Width 13.3 % (12.1-15.1); White Blood Count 4.7 10^3/uL (4.0-10.0)
[2022-09-28 14:20] LABS: Alanine Aminotransferase 40 U/L (0-41); Albumin Level 3.9 g/dL (3.5-5.2); Alkaline Phosphatase 76 U/L (40-130); Anion Gap 14.4 (5-19); Aspartate Amino Transferase 31 U/L (0-40); Blood Urea Nitrogen 12 mg/dL (8-23); Calcium 9.5 mg/dL (8.5-10.5); Carbon Dioxide 24 mmol/L (22-29); Chloride 106 mmol/L (98-107); Globulin 3.2 g/dL (1.3-4.6); Glucose 98 mg/dL (65-115); Osmolality Calculated 290 mOsm/kg (285-295); Potassium 4.4 mmol/L (3.5-5.1); Prostate Specific Antigen 0.385 ng/mL (0-4); Sodium 140 mmol/L (136-145); Total Bilirubin 0.7 mg/dL (0.15-1.2); Total Protein 7.1 g/dL (6.6-8.7)
[2022-09-28] MEDS: leuprolide 22.5 mg Kit IM (14:27)
== END 2022-09-29 10:16 | disposition home or self-care (01) ==
PROVIDERS: Nurse Practitioner; PCP Family Medicine; Visit Provider Radiology Radiation Oncology
DX: C61 Malignant neoplasm of prostate; R19.7 Diarrhea, unspecified; K64.9 Unspecified hemorrhoids; Z79.818 Long term (current) use of other agents affecting estrogen receptors and estrogen levels; Z79.899 Other long term (current) drug therapy; Z92.3 Personal history of irradiation; Z87.891 Personal history of nicotine dependence
CPT/HCPCS: 36415; 77336; 77385; 77386; 80053; 81001; 84153; 85025; 96402; 99024; 99214; J9217

== ENCOUNTER 2022-10-23 09:35 | Oncology outpatient (recurring) (ONCR) | payer MEDICARE, SELFPAY ==
--- NOTE | 2022-10-23 10:15 | ONCRAD EPV_ITS ---
Radiation Oncology Follow-Up Note Patient Name: Aleksandar Hoffman Date of : 1950 Date of Service: 10/23/2022 Attending Physician: Graham Zapien M.D. Aleksandar Hoffmna returned to my office this morning for a routinely scheduled post-radiotherapy appointment. He completed prostate radiotherapy in September for the management of a clinical stage IIIC (T2bN0) very high-risk prostate cancer. He initially was identified to have an elevated PSA level (24.9 ng/mL) in April by his primary care physician. He was referred to Luciano Saenz M.D. A digital rectal exam revealed a right prostatic lobe nodule. A transrectal ultrasound-guided biopsy performed on March 29, 2022 revealed a 38 cc prostate gland with a hypoechoic lesion in the right lobe. The pathology report diagnosed an adenocarcinoma the prostate gland with a Geronimo score of 4+5 = 9 (grade group 5) involving the right base (95%), A nuclear medicine bone scintigraphy scan and an abdominopelvic CT scan metastatic disease did not identify metastatic disease. A GnRH agonist (Eligard) was administered on June 11, 2022. The second cycle was given September 28, 2022. Pelvic radiation therapy was delivered between the dates of August 03, 2022 through September 24, 2022. A prescribed dose of 78 Gy was delivered in 39 fractions encompassing 53 elapsed days. On review of systems, the patient described urinary frequency (may be related to increase liquid intake per patient). On physical examination, the patient weighed 206 pounds. The temperature is 96.9???F and his blood pressure was 138/78 mmHg. The pulse was 65 bpm and his respiratory rate was 18 breaths per minute. Genitourinary exam was deferred. In summary, Mr. Hoffman returned for a routine post-radiotherapy follow-up. A PSA obtained on September 28, 2022 was 0.39 ng/mL. I will change the Flomax dosing to twice daily. He will continue follow-up as scheduled with his medical oncologist. Signed by: Dr. Graham Zapien 10/23/2022 10:13:59 AM
== END 2022-11-07 23:59 | disposition home or self-care (01) ==
LOC: ONCMED 09:35
PROVIDERS: PCP Family Medicine; Visit Provider Radiology Radiation Oncology
DX: Z51.0 Encounter for antineoplastic radiation therapy (principal); C61 Malignant neoplasm of prostate; Z53.9 Procedure and treatment not carried out, unspecified reason
CPT/HCPCS: 99024

== ENCOUNTER → 2022-11-17 09:15 | Outpatient (BNVA) | payer MEDICARE, SELFPAY | PROVIDERS: PCP Family Medicine; Visit Provider Family Medicine | DX: E11.9 Type 2 diabetes mellitus without complications (principal); I25.10 Atherosclerotic heart disease of native coronary artery without angina pectoris; E03.9 Hypothyroidism, unspecified; C61 Malignant neoplasm of prostate | CPT/HCPCS: 83036; 84443 ==

== ENCOUNTER → 2022-12-01 07:48 | Outpatient (BNVA) | payer MEDICARE, SELFPAY | PROVIDERS: PCP Family Medicine; Visit Provider Podiatrist Foot & Ankle Surgery | DX: E11.21 Type 2 diabetes mellitus with diabetic nephropathy (principal); M20.41 Other hammer toe(s) (acquired), right foot; M20.42 Other hammer toe(s) (acquired), left foot; G57.61 Lesion of plantar nerve, right lower limb; Z79.84 Long term (current) use of oral hypoglycemic drugs | CPT/HCPCS: 99214 ==

== ENCOUNTER 2022-12-30 12:08 | Oncology outpatient (recurring) (ONCR) | payer MEDICARE, SELFPAY ==
[2022-12-30 12:24] LABS: Eosinophils # 0.2 10^3/uL (0.0-0.8); Eosinophils % 3.7 %; Hematocrit 37.2 % (42.0-52.0); Hemoglobin 12.1 g/dL (11.7-16.6); Lymphocytes # 0.5 10^3/uL (0.8-4.8); Lymphocytes % 12.2 %; Mean Corpuscular HGB Conc 32.5 g/dL (30.0-36.0); Mean Corpuscular Hemoglobin 33.7 pg (28.0-34.0); Mean Corpuscular Volume 103.6 fl (80-94); Mean Platelet Volume 9.4 fL (7.4-10.4); Monocytes # 0.5 10^3/uL (0.2-0.9); Monocytes % 11.2 %; Neutrophils # 2.88 10^3/uL (1.8-7.7); Neutrophils % 71.4 %; Nucleated Red Blood Cells % 0 %; Platelet Count 158 10^3/cmm (130-400); Red Blood Count 3.59 10^6/uL (4.1-5.3); Red Cell Distribution Width 11.9 % (12.1-15.1)
[2022-12-30 12:52] LABS: Alanine Aminotransferase 27 U/L (0-41); Albumin Level 4.1 g/dL (3.5-5.2); Alkaline Phosphatase 70 U/L (40-130); Anion Gap 14.5 (5-19); Aspartate Amino Transferase 35 U/L (0-40); Blood Urea Nitrogen 18 mg/dL (8-23); Carbon Dioxide 25 mmol/L (22-29); Chloride 104 mmol/L (98-107); Globulin 2.7 g/dL (1.3-4.6); Glucose 109 mg/dL (65-115); Osmolality Calculated 290 mOsm/kg (285-295); Potassium 4.5 mmol/L (3.5-5.1); Prostate Specific Antigen 0.142 ng/mL (0-4); Sodium 139 mmol/L (136-145); Total Bilirubin 0.9 mg/dL (0.15-1.2); Total Protein 6.8 g/dL (6.6-8.7)
[2022-12-30] MEDS: leuprolide 22.5 mg Kit IM (14:53)
== END 2023-01-05 23:59 | disposition home or self-care (01) ==
PROVIDERS: PCP Family Medicine; Visit Provider Internal Medicine Medical Oncology
DX: C61 Malignant neoplasm of prostate; R19.7 Diarrhea, unspecified; K64.9 Unspecified hemorrhoids; N30.90 Cystitis, unspecified without hematuria; Z79.818 Long term (current) use of other agents affecting estrogen receptors and estrogen levels; Z79.899 Other long term (current) drug therapy; Z87.891 Personal history of nicotine dependence
CPT/HCPCS: 36415; 80053; 84153; 85025; 96402; 99214; J9217

== ENCOUNTER → 2023-01-12 15:28 | Outpatient (BNVA) | payer MEDICARE, SELFPAY | PROVIDERS: PCP Family Medicine; Visit Provider Urology | DX: C61 Malignant neoplasm of prostate (principal); R39.9 Unspecified symptoms and signs involving the genitourinary system | CPT/HCPCS: 51741; 51798; 81003; 99213 ==

== ENCOUNTER → 2023-01-19 10:57 | Outpatient (BNVA) | payer MEDICARE, SELFPAY | PROVIDERS: PCP Family Medicine; Visit Provider Surgery | DX: R13.10 Dysphagia, unspecified (principal); Z86.010 Personal history of colon polyps | CPT/HCPCS: 99203; 99214 ==

== ENCOUNTER 2023-02-24 08:22 | Day surgery (SDC) | payer MEDICARE, SELFPAY ==
[2023-02-22 09:02] VITALS: BMI 32.8
[2023-02-24 08:53] VITALS: BP 152/94; PULSE 61; RESP 17; TEMP 36.2; O2SAT 94
[2023-02-24] MEDS: sodium chloride 0.9% 1,000 ML 30 ML IV (09:08)
--- NOTE | 2023-02-24 10:54 | P.HP_ITS ---
Providers/Chief Complaint Primary Care Provider: Brendan Cormier MD Chief Complaint: Dysphagia and need for colon cancer screening History of Present Illness Aleksandar Hoffman is a 73 year old male here for EGD with possible balloon di lation and colonoscopy Medications/Allergies Home Medications Medication Instructions Recorded Confirmed Last Taken Type aspirin 81 mg tablet,delayed 81 mg PO BEDTIME 04/09/21 02/24/23 02/21/23 History release atorvastatin 40 mg tablet 40 mg PO BEDTIME 04/09/21 02/24/23 02/22/23 History carvedilol 6.25 mg tablet 6.25 mg PO BID 04/09/21 02/24/23 02/24/23 07:00 History cetirizine 10 mg tablet (Zyrtec) 10 mg PO QAM 04/09/21 02/24/23 Unknown History cholecalciferol (vitamin D3) 50 2,000 unit PO QAM 04/09/21 02/24/23 02/23/23 History mcg (2,000 unit) capsule (Vitamin D3) coenzyme Q10 100 mg capsule 100 mg PO QAM 04/09/21 02/24/23 02/23/23 History (CoQ-10) fluticasone propionate 50 2 spray intranasal DAILY PRN 04/09/21 02/24/23 02/21/23 History mcg/actuation nasal Allergy Symptoms spray,suspension vitamin B complex 1 tab PO BID 04/09/21 02/24/23 02/23/23 History Diabetic Shoes with Custom Molded #1 ea 02/23/22 01/19/23 Unknown Rx Orthotics pantethine 300 mg tablet,extended 450 mg PO BID 03/30/22 02/24/23 02/23/23 History release triamcinolone acetonide 0.1 % 1 applic topical DAILY PRN Rash 03/30/22 02/24/23 02/20/23 History topical cream tamsulosin 0.4 mg capsule 0.4 mg PO BID #180 caps 06/02/22 02/24/23 02/23/23 Rx lactobacillus combination no.9 4 4,000 mmu cells PO DAILY 06/11/22 02/24/23 02/23/23 History billion cell capsule (Adult 50 Plus Probiotic) meclizine 25 mg tablet 25 mg PO DAILY PRN Dizziness 06/11/22 02/24/23 Unknown History levothyroxine 25 mcg tablet 25 mcg PO QAM #90 tabs 07/07/22 02/24/23 02/23/23 Rx magnesium glycinate 100 mg tablet 100 mg PO BID 09/28/22 02/24/23 Unknown History gabapentin 300 mg capsule 600 mg PO QID 12/30/22 02/24/23 02/23/23 History blood sugar diagnostic (OneTouch #100 strips 02/23/23 Unknown Rx Verio test strips) Allergies Allergy/AdvReac Type Severity Reaction Status Date / Time cephalexin [From Keflex] Allergy WHELPS ON Verified 02/24/23 08:54 HIPS PFSH Acute PFSH: Medical History (Updated 01/19/23 @ 12:21 by Antwan Quintero DO) CAD (coronary artery disease) Dyslipidemia History of colon polyps History of nephrolithiasis Hypertension Hypothyroidism IPMN (intraductal papillary mucinous neoplasm) Prostate cancer Psoriasis Type 2 diabetes mellitus Surgical History H/O colectomy sigmoid colectomy for diverticulitis H/O inguinal hernia repair left H/O lithotripsy H/O prostate biopsy (04/29/22) TRUSP/biopsy History of cataract extraction 2019 - Cataract and glaucoma stent History of coronary artery stent placement (2008) History of tonsillectomy and adenoidectomy S/P right knee arthroscopy Status post surgical removal of malignant neoplasm of skin Right hand Family History Father , AT AGE 83 of unknown cause Mother , AT 82 Dementia Diabetes Other CAD (coronary artery disease) Cancer Family history of premature coronary artery disease Hyperlipidemia Hypertension Lung disease Denies family history of Clotting disorder Psychiatric illness Chronic kidney disease (CKD) Suicide Anesthesia complication Bleeding disorder Stroke Social History Smoking and tobacco status: former smoker Alcohol intake: never Marital status: Current occupational status: employed and retired 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
--- NOTE | 2023-02-24 10:58 | ANES.PREANE2 ---
Pre-Anesthetic Assessment Height/Weight: Height 1.7 m Weight 95.254 kg Temp Pulse Resp BP Pulse Ox O2 Del Method 97.2 F L 61 17 152/94 94 Room Air 02/24/23 08:53 02/24/23 08:53 02/24/23 08:53 02/24/23 08:53 02/24/23 08:53 02/24/23 08:53 Operation Date: 02/24/23 10:00 Proposed Procedures p 88389 EGD with balloon dialtion, 77631 Colon Z86.010, R13.10(Not Applicable) - DO jason Singletary Colonoscopy(Not Applicable) - Antwan Quintero DO Familial anesthetic complications: none Was Beta Jarvis taken within 24 hours: Yes Was Clonidine taken within 24 hours: N/A Last intake: Intake Last Liquid Date 02/23/23 Last Liquid Time 22:00 Last Solid Date 02/22/23 Last Solid Time 20:00 Social No alcohol and No tobacco Exam alert and oriented x 3 Airway Submandibular: within normal limits Cervical ROM: within normal limits Mallampati: Class II Dentition: false History/ROS No significant history except as noted Pulmonary None reported CV/HEM Hypertension None reported Hepatic None reported GI Gastroesophageal Reflux Disease Metabolic Hyperlipidemia [facility] [place] None reported Neuropsych None reported Anesthetic Plan ASA status: 3 Anesthesia: Anesthesia Evaluation and MAC Medications/Allergies Home Medications Medication Instructions Recorded Confirmed Last Taken Type aspirin 81 mg tablet,delayed 81 mg PO BEDTIME 04/09/21 02/24/23 02/21/23 History release atorvastatin 40 mg tablet 40 mg PO BEDTIME 04/09/21 02/24/23 02/22/23 History carvedilol 6.25 mg tablet 6.25 mg PO BID 04/09/21 02/24/23 02/24/23 07:00 History cetirizine 10 mg tablet (Zyrtec) 10 mg PO QAM 04/09/21 02/24/23 Unknown History cholecalciferol (vitamin D3) 50 2,000 unit PO QAM 04/09/21 02/24/23 02/23/23 History mcg (2,000 unit) capsule (Vitamin D3) coenzyme Q10 100 mg capsule 100 mg PO QAM 04/09/21 02/24/23 02/23/23 History (CoQ-10) fluticasone propionate 50 2 spray intranasal DAILY PRN 04/09/21 02/24/23 02/21/23 History mcg/actuation nasal Allergy Symptoms spray,suspension vitamin B complex 1 tab PO BID 04/09/21 02/24/23 02/23/23 History Diabetic Shoes with Custom Molded #1 ea 02/23/22 01/19/23 Unknown Rx Orthotics pantethine 300 mg tablet,extended 450 mg PO BID 03/30/22 02/24/23 02/23/23 History release triamcinolone acetonide 0.1 % 1 applic topical DAILY PRN Rash 03/30/22 02/24/23 02/20/23 History topical cream tamsulosin 0.4 mg capsule 0.4 mg PO BID #180 caps 06/02/22 02/24/23 02/23/23 Rx lactobacillus combination no.9 4 4,000 mmu cells PO DAILY 06/11/22 02/24/23 02/23/23 History billion cell capsule (Adult 50 Plus Probiotic) meclizine 25 mg tablet 25 mg PO DAILY PRN Dizziness 06/11/22 02/24/23 Unknown History levothyroxine 25 mcg tablet 25 mcg PO QAM #90 tabs 07/07/22 02/24/23 02/23/23 Rx magnesium glycinate 100 mg tablet 100 mg PO BID 09/28/22 02/24/23 Unknown History gabapentin 300 mg capsule 600 mg PO QID 12/30/22 02/24/23 02/23/23 History blood sugar diagnostic (OneTouch #100 strips 02/23/23 Unknown Rx Verio test strips) hydrocortisone 2.5 % topical cream 1 applic MO QID 10 days #30 grams 02/24/23 Unknown Rx with perineal applicator (Procto-Med ) Allergies Allergy/AdvReac Type Severity Reaction Status Date / Time cephalexin [From Keflex] Allergy WHELPS ON Verified 02/24/23 08:54 HIPS Current Medications Generic Name Dose Route Start Last Admin Trade Name Freq PRN Reason Stop Dose Admin Sodium Chloride 1,000 mls @ 30 mls/hr 02/24/23 08:45 02/24/23 09:08 Sodium Chloride 0.9% IV 02/25/23 08:44 30 mls/hr .Q24H MEDINA Administration PFSH Anesthesia Medical History (Updated 01/19/23 @ 12:21 by Antwan Quintero DO) CAD (coronary artery disease) Dyslipidemia History of colon polyps History of nephrolithiasis Hypertension Hypothyroidism IPMN (intraductal papillary mucinous neoplasm) Prostate cancer Psoriasis Type 2 diabetes mellitus Surgical History H/O colectomy sigmoid colectomy for diverticulitis H/O inguinal hernia repair left H/O lithotripsy H/O prostate biopsy (04/29/22) TRUSP/biopsy History of cataract extraction 2019 Cataract and glaucoma stent History of coronary artery stent placement (2008) History of tonsillectomy and adenoidectomy S/P right knee arthroscopy Status post surgical removal of malignant neoplasm of skin Right hand Family History Father , AT AGE 83 of unknown cause Mother , AT 82 Dementia Diabetes Other CAD (coronary artery disease) Cancer Family history of premature coronary artery disease Hyperlipidemia Hypertension Lung disease Denies family history of Clotting disorder Psychiatric illness Chronic kidney disease (CKD) Suicide Anesthesia complication Bleeding disorder Stroke Social History Smoking and tobacco status: former smoker Alcohol intake: never Marital status: Current occupational status: employed and retired Current occupation: [employer] Data Anesthesia Cardiac Studies: No Data to Display
[2023-02-24 11:23] VITALS: BP 108/63; PULSE 45; RESP 18; TEMP 36.1; O2SAT 90
[2023-02-24 11:28] VITALS: BP 116/74; PULSE 45; RESP 18; O2SAT 92
[2023-02-24 11:38] VITALS: BP 120/69; PULSE 52; RESP 18; O2SAT 95
--- NOTE | 2023-02-24 11:43 | PC.NURSE ---
printed report of procedures given to patient and as requested by and instructed by Dr Quintero.
--- NOTE | 2023-02-24 11:58 | ANE.PACU2 ---
Inpatient post-anesthesia follow up: Airway intact: Yes Vital signs: Temperature 97.0 F Pulse Rate 52 Respiratory Rate 18 Blood Pressure 120/69 Pulse Oximetry 95 Oxygen Delivery Me thod Room Air Oxygen Flow Rate Fraction of Inspir ed Oxygen Hydration adequate: Yes Nausea and vomiting: No Pain level: 1 Mental status: Baseline
== END 2023-02-24 12:08 | disposition home or self-care (01) ==
PROVIDERS: PCP Family Medicine; Visit Provider Surgery
PROC: 0DJD8ZZ Inspection of Lower Intestinal Tract, Via Natural or Artificial Opening Endoscopic (ICD-10-PCS; CPT 45378; 2023-02-24 10:00)
DX: R13.10 Dysphagia, unspecified (principal); Z86.010 Personal history of colon polyps; Z79.82 Long term (current) use of aspirin; I25.10 Atherosclerotic heart disease of native coronary artery without angina pectoris; E78.5 Hyperlipidemia, unspecified; I10 Essential (primary) hypertension; E03.9 Hypothyroidism, unspecified; E11.9 Type 2 diabetes mellitus without complications; Z87.891 Personal history of nicotine dependence; K21.9 Gastro-esophageal reflux disease without esophagitis; K22.2 Esophageal obstruction; K57.30 Diverticulosis of large intestine without perforation or abscess without bleeding; K64.8 Other hemorrhoids
CPT/HCPCS: 43239; 43249; 88305; G0121; J2704; J7030

== ENCOUNTER → 2023-03-09 15:59 | Outpatient (BNVA) | payer MEDICARE, SELFPAY | PROVIDERS: PCP Family Medicine; Visit Provider Surgery | DX: Z86.010 Personal history of colon polyps (principal); R13.10 Dysphagia, unspecified; K64.9 Unspecified hemorrhoids | CPT/HCPCS: 99024; 99212 ==

== ENCOUNTER 2023-04-02 08:20 | Oncology outpatient (recurring) (ONCR) | payer MEDICARE, SELFPAY ==
[2023-04-02 08:51] VITALS: BP 129/73; PULSE 60; RESP 16; TEMP 36.5; O2SAT 98
[2023-04-02] MEDS: leuprolide 22.5 mg Kit IM (09:02)
[2023-04-02 09:33] LABS: Prostate Specific Antigen 0.123 ng/mL (0-4)
== END 2023-04-07 23:59 | disposition home or self-care (01) ==
LOC: ONCMED 08:20
PROVIDERS: PCP Family Medicine; Visit Provider Internal Medicine Medical Oncology
DX: C61 Malignant neoplasm of prostate (principal)
CPT/HCPCS: 36415; 84153; 96402; J9217

== ENCOUNTER → 2023-05-18 13:16 | Outpatient (BNVA) | payer MEDICARE, SELFPAY | PROVIDERS: PCP Family Medicine; Visit Provider Podiatrist Foot & Ankle Surgery | DX: E11.8 Type 2 diabetes mellitus with unspecified complications (principal); E11.21 Type 2 diabetes mellitus with diabetic nephropathy; L60.3 Nail dystrophy; M20.41 Other hammer toe(s) (acquired), right foot; M20.42 Other hammer toe(s) (acquired), left foot; G57.61 Lesion of plantar nerve, right lower limb | CPT/HCPCS: 11721; 99214 ==

== ENCOUNTER → 2023-05-20 09:14 | Outpatient (BNVA) | payer MEDICARE, SELFPAY | PROVIDERS: PCP Family Medicine; Visit Provider Family Medicine | DX: E11.9 Type 2 diabetes mellitus without complications (principal); I73.9 Peripheral vascular disease, unspecified; I25.10 Atherosclerotic heart disease of native coronary artery without angina pectoris; E03.9 Hypothyroidism, unspecified | CPT/HCPCS: 80053; 80061; 83036; 84443; 85025 ==

== ENCOUNTER 2023-05-25 09:42 | Outpatient (CLI) | payer MEDICARE, SELFPAY ==
--- NOTE | 2023-05-25 10:00 | USCV_ITS ---
Aleksandar Hoffman Age: 73 Gender: M : 1950 Exam Date: 05/25/2023 10:01 Ordering Phys: Brendan Cormier MD Technologist: Exam Location: [place]_ Indication: cold feet pain RIGHT LEFT Brachial 145.00 mmHg Brachial 145.00 mmHg Pressure (mmHg) Waveform Pressure (mmHg) Waveform 152.00 [employer] 162.00 150.00 DPA 155.00 1.00 Ankle/Brachial Index 1.10 163.00 Pre-Exercise Toe Pressure 120.00 1.20 Pre-Exercise Toe/Brachial Index 0.83 FINDINGS Resting JENNA 1.0 on the right and 1.1 on the left Resting TBI of 1.2 on the right and 0.83 on the left CONCLUSIONS Normal resting ABIs and TBIs bilaterally No evidence of any significant arterial obstruction, based on the above findings. Dr Mahesh Fernandez MD [facility] (Electronically Signed) Final Date: 25 May 2023 20:19 S
== END 2023-05-25 09:43 | disposition home or self-care (01) ==
PROVIDERS: PCP Family Medicine; Visit Provider Family Medicine
DX: I73.9 Peripheral vascular disease, unspecified (principal); I25.10 Atherosclerotic heart disease of native coronary artery without angina pectoris; E03.9 Hypothyroidism, unspecified
CPT/HCPCS: 93922

== ENCOUNTER 2023-07-01 11:30 | Oncology outpatient (recurring) (ONCR) | payer MEDICARE, SELFPAY ==
[2023-07-01 12:00] VITALS: BP 126/58; PULSE 76; RESP 18; TEMP 36.2; O2SAT 95
[2023-07-01 12:14] LABS: Basophils % 0.3 %; Eosinophils # 0.1 10^3/uL (0.0-0.8); Eosinophils % 2.2 %; Hematocrit 37.4 % (37-53); Lymphocytes # 0.6 10^3/uL (0.8-4.8); Mean Corpuscular HGB Conc 33.4 g/dL (30-55); Mean Corpuscular Hemoglobin 33.3 pg (27-33); Mean Corpuscular Volume 99.7 fl (82-101); Mean Platelet Volume 9.1 fL (7.4-10.4); Monocytes # 0.5 10^3/uL (0.2-0.9); Monocytes % 7.6 %; Neutrophils # 5.16 10^3/uL (1.8-7.7); Neutrophils % 80.1 %; Nucleated Red Blood Cells % 0 %; Platelet Count 174 10^3/cmm (157-399); Red Blood Count 3.75 10^6/uL (3.85-5.65); Red Cell Distribution Width 12.9 % (12.1-15.1); White Blood Count 6.44 10^3/uL (3.29-11.43)
[2023-07-01 12:37] LABS: Alanine Aminotransferase 27 U/L (0-41); Albumin Level 4.5 g/dL (3.5-5.2); Alkaline Phosphatase 80 U/L (40-130); Aspartate Amino Transferase 28 U/L (0-40); Blood Urea Nitrogen 27 mg/dL (8-23); Calcium 9.1 mg/dL (8.5-10.5); Carbon Dioxide 24 mmol/L (22-29); Chloride 108 mmol/L (98-107); Globulin 2.5 g/dL (1.3-4.6); Glucose 123 mg/dL (65-115); Osmolality Calculated 302 mOsm/kg (285-295); Prostate Specific Antigen 0.086 ng/mL (0-4); Sodium 143 mmol/L (136-145); Total Bilirubin 0.7 mg/dL (0.15-1.2)
[2023-07-01 12:39] LABS: Anion Gap 15.2 (5-19); Potassium 4.2 mmol/L (3.5-5.1)
[2023-07-01] MEDS: leuprolide 22.5 mg Kit IM (15:04)
== END 2023-07-08 23:59 | disposition home or self-care (01) ==
PROVIDERS: PCP Family Medicine; Visit Provider Internal Medicine Medical Oncology
DX: Z51.11 Encounter for antineoplastic chemotherapy (principal); C61 Malignant neoplasm of prostate; Z79.899 Other long term (current) drug therapy
CPT/HCPCS: 36415; 80053; 84153; 85025; 96402; 99214; J9217

== ENCOUNTER 2023-07-13 08:17 | Outpatient (CLI) | payer MEDICARE, SELFPAY ==
[2023-07-13 08:30] VITALS: BMI 30.5
--- NOTE | 2023-07-13 08:42 | ECG_ITS ---
[facility] Test Date: 2023-07-13 Pat Name: Aleksandar Hoffman Department: Room: Gender: Male [employer]: : 1950 Requested By: Brendan Chapman Order Number: [id number] Edilberto MD: Mahesh Fernandez M.D. Interpretive Statements NAME OF STUDY: EXERCISE SESTAMIBI STRESS TEST INDICATION: Chest Pain PROCEDURE: The baseline electrocardiogram showed normal sinus rhythm with normal ST-Ts. At the baseline, the patient's blood pressure was 151/80 mm Hg with a heart rate of 99/min. The patient exercised for 4 minutes and 45 seconds on a standard Yousif protocol. Patient attained a maximum heart rate of 132 beats per minute(91% of the maximum predicted heart rate) with a blood pressure at the peak exercise of 208/106 mm Hg. The EKG at the peak exercise revealed no significant changes. Patient did [not have any chest pain. Frequent PACs were noted with the peak exercise . Sestamibi was injected 1 minute prior to the peak exercise During the recovery phase, there were no new changes. Blood pressure at the end of the recovery phase was 139/74 mm Hg with a heart rate of 77 per minute. CONCLUSION: 1. No significant EKG changes with the treadmill xercise 2. Exercise-induced regional arrhythmias are noted with no significant ST-T changes 3. Slightly impaired exercise tolerance, attained a maximum of 7.0 METs 4. Sestamibi/Sestamibi perfusion results pending; see separate report. Electronically Signed On 07-16-2023 9:57:45 CDT by Mahesh Fernandez M.D. [email or web address]
--- NOTE | 2023-07-13 08:43 | NMCV_ITS ---
NM sky perf SPECT r/s* [id number] Aleksandar Hoffman Age: 73 Gender: M : 1950 Exam Date: 07/13/2023 09:14 Ordering Phys: Brendan Cormier MD Technologist: PERLA Rai Exam Location: [facility] Indications: CHEST PAIN STRESS TEST [facility] IMAGE PROTOCOL Rest/Stress 1 Exercise Day Radiopharmaceutical Dose (mCi) Administration Site Administered by Rest: Tc-99m 11.0 IV Reena Arias, TWIST PACKER Sestamibi Stress:Tc-99m 32.9 IV Reena Arias, TWIST PACKER Sestamibi Rest: 13-Jul-2023 60 Discovery 630 Stress: 13-Jul-2023 15 Discovery 630 Radiopharmaceutical was injected at 85 % maximum heart rate. Images obtained in supine and prone position. SPECT RESULTS Technical Quality: Excellent Raw Data Analysis: Normal Image Corrections: No attenuation or motion correction applied Summed Stress Score: 1 Summed Rest Score: 6 Summed Difference Score: 0 PERFUSION FINDINGS Small area of slightly decreased tracer uptake was noted in the mid inferoseptal region. No significant reversibility was noted in this region FUNCTIONAL RESULTS (calculated via Gated SPECT) Stress Image LV EF (%): 85 Stress EDV (mL):81 TID: 0.73 Stress ESV (mL):12 FUNCTIONAL FINDINGS: Segmental wall motion analysis revealing no gross wall motion normalities IMPRESSIONS 1. Myocardial perfusion imaging revealing a small area of persistent decreased tracer uptake in the mid inferoseptal region suggesting myocardial scarring versus attenuation artifact. 2. Normal LV ejection fraction of 85%. 3. LV wall motion analysis revealing no gross wall motion abnormalities. 4. Normal LV volume Low probability for coronary ischemia, based on the above findings Dr Mahesh Fernandez MD [facility] (Electronically Signed) Final Date: 13 July 2023 14:53 S
[2023-07-13 13:04] VITALS: BP 139/74; PULSE 78
== END 2023-07-13 08:18 | disposition home or self-care (01) ==
LOC: CDL 08:19
PROVIDERS: PCP Family Medicine; Visit Provider Family Medicine
DX: R07.9 Chest pain, unspecified (principal); I49.9 Cardiac arrhythmia, unspecified
CPT/HCPCS: 36415; 78452; 93017; A9500

== ENCOUNTER 2023-09-23 10:06 | Oncology outpatient (recurring) (ONCR) | payer MEDICARE, SELFPAY ==
[2023-09-23 14:22] VITALS: BP 111/66; PULSE 55; TEMP 36.1; O2SAT 92
[2023-09-23] MEDS: leuprolide 22.5 mg Kit IM (14:49)
[2023-09-23 15:11] LABS: Prostate Specific Antigen 0.071 ng/mL (0-4)
== END 2023-10-07 23:59 | disposition home or self-care (01) ==
LOC: ONCMED 10:07
PROVIDERS: Nurse Practitioner Family; PCP Family Medicine; Visit Provider Internal Medicine Medical Oncology
DX: C61 Malignant neoplasm of prostate; Z51.11 Encounter for antineoplastic chemotherapy
CPT/HCPCS: 36415; 84153; 96401; J9217

== ENCOUNTER 2023-11-15 13:23 | Oncology outpatient (recurring) (ONCR) | payer MEDICARE, SELFPAY ==
[2023-11-15 13:55] VITALS: BP 110/73; PULSE 67; RESP 16; TEMP 36.9; O2SAT 99
[2023-11-15 14:14] LABS: Basophils % 0.6 %; Eosinophils # 0.2 10^3/uL (0.0-0.8); Eosinophils % 2.9 %; Hematocrit 37.4 % (37-53); Lymphocytes # 0.5 10^3/uL (0.8-4.8); Mean Corpuscular HGB Conc 33.4 g/dL (30-55); Mean Corpuscular Hemoglobin 33.1 pg (27-33); Mean Corpuscular Volume 98.9 fl (82-101); Mean Platelet Volume 9.1 fL (7.4-10.4); Monocytes # 0.5 10^3/uL (0.2-0.9); Monocytes % 8.7 %; Neutrophils % 76.8 %; Nucleated Red Blood Cells % 0 %; Platelet Count 165 10^3/cmm (157-399); Red Blood Count 3.78 10^6/uL (3.85-5.65); Red Cell Distribution Width 12.8 % (12.1-15.1)
[2023-11-15 14:40] LABS: Prostate Specific Antigen 0.054 ng/mL (0-4)
[2023-11-15 14:42] LABS: Alanine Aminotransferase 29 U/L (0-41); Albumin Level 4.1 g/dL (3.5-5.2); Alkaline Phosphatase 81 U/L (40-130); Aspartate Amino Transferase 34 U/L (0-40); Blood Urea Nitrogen 23 mg/dL (8-23); Calcium 9.5 mg/dL (8.5-10.5); Carbon Dioxide 25 mmol/L (22-29); Chloride 106 mmol/L (98-107); Globulin 2.7 g/dL (1.3-4.6); Glucose 112 mg/dL (65-115); Osmolality Calculated 296 mOsm/kg (285-295); Sodium 141 mmol/L (136-145); Testosterone Total 5.2 ng/dL (193-740); Total Bilirubin 0.8 mg/dL (0.15-1.2); Total Protein 6.8 g/dL (6.6-8.7)
[2023-11-15 14:44] LABS: Anion Gap 14.5 (5-19); Potassium 4.5 mmol/L (3.5-5.1)
== END 2023-12-08 23:59 | disposition home or self-care (01) ==
PROVIDERS: Internal Medicine; PCP Family Medicine; Visit Provider Internal Medicine Medical Oncology
DX: Z51.11 Encounter for antineoplastic chemotherapy (principal); C61 Malignant neoplasm of prostate; Z79.899 Other long term (current) drug therapy
CPT/HCPCS: 36415; 80053; 84153; 84403; 85025; 99213

== ENCOUNTER → 2023-11-16 07:35 | Outpatient (BNVA) | payer MEDICARE, SELFPAY | PROVIDERS: PCP Family Medicine; Visit Provider Podiatrist Foot & Ankle Surgery | DX: E11.21 Type 2 diabetes mellitus with diabetic nephropathy (principal); M20.41 Other hammer toe(s) (acquired), right foot; M20.42 Other hammer toe(s) (acquired), left foot; G62.9 Polyneuropathy, unspecified | CPT/HCPCS: 99213 ==

== ENCOUNTER → 2023-11-18 07:40 | Outpatient (BNVA) | payer MEDICARE, SELFPAY | PROVIDERS: PCP Family Medicine; Visit Provider Family Medicine | DX: R30.0 Dysuria (principal); E11.9 Type 2 diabetes mellitus without complications; I25.10 Atherosclerotic heart disease of native coronary artery without angina pectoris; E03.9 Hypothyroidism, unspecified; K86.2 Cyst of pancreas; R35.0 Frequency of micturition | CPT/HCPCS: 80061; 81000; 83036; 84443; 87077; 87086; 87184 ==

== ENCOUNTER 2023-12-16 13:38 | Oncology outpatient (recurring) (ONCR) | payer MEDICARE, SELFPAY ==
[2023-12-16] MEDS: leuprolide 22.5 mg Kit IM (14:11)
[2023-12-16 14:16] VITALS: BP 132/70; PULSE 77; RESP 18; TEMP 36.6; O2SAT 95
== END 2024-01-06 23:59 | disposition home or self-care (01) ==
PROVIDERS: PCP Family Medicine; Visit Provider Internal Medicine Medical Oncology
DX: Z51.11 Encounter for antineoplastic chemotherapy (principal); C61 Malignant neoplasm of prostate
CPT/HCPCS: 96402; J9217

== ENCOUNTER → 2024-01-26 10:47 | Outpatient (BNVA) | payer MEDICARE, SELFPAY | PROVIDERS: PCP Family Medicine; Visit Provider Family Medicine | DX: C61 Malignant neoplasm of prostate (principal); E11.9 Type 2 diabetes mellitus without complications | CPT/HCPCS: 84443 ==

== ENCOUNTER 2024-03-14 15:30 | Oncology outpatient (recurring) (ONCR) | payer MEDICARE, SELFPAY ==
[2024-03-13 10:37] LABS: Basophils % 0.7 %; Eosinophils # 0.1 10^3/uL (0.0-0.8); Eosinophils % 2.5 %; Hematocrit 38.9 % (37-53); Lymphocytes # 0.6 10^3/uL (0.8-4.8); Lymphocytes % 12.8 %; Mean Corpuscular HGB Conc 32.9 g/dL (30-55); Mean Corpuscular Hemoglobin 32.6 pg (27-33); Mean Platelet Volume 9.6 fL (7.4-10.4); Monocytes # 0.4 10^3/uL (0.2-0.9); Neutrophils # 3.28 10^3/uL (1.8-7.7); Neutrophils % 75.3 %; Nucleated Red Blood Cells % 0 %; Platelet Count 159 10^3/cmm (157-399); Red Blood Count 3.93 10^6/uL (3.85-5.65); Red Cell Distribution Width 12.8 % (12.1-15.1); White Blood Count 4.36 10^3/uL (3.29-11.43)
[2024-03-13 11:09] LABS: Alanine Aminotransferase 30 U/L (0-41); Albumin Level 4.1 g/dL (3.5-5.2); Alkaline Phosphatase 77 U/L (40-130); Anion Gap 13.5 (5-19); Aspartate Amino Transferase 28 U/L (0-40); Blood Urea Nitrogen 19 mg/dL (8-23); Carbon Dioxide 25 mmol/L (22-29); Chloride 105 mmol/L (98-107); Globulin 2.8 g/dL (1.3-4.6); Glucose 122 mg/dL (65-115); Lactate Dehydrogenase 231 U/L (135-225); Osmolality Calculated 292 mOsm/kg (285-295); Potassium 4.5 mmol/L (3.5-5.1); Prostate Specific Antigen 0.037 ng/mL (0-4); Sodium 139 mmol/L (136-145); Testosterone Total 5.2 ng/dL (193-740); Total Bilirubin 0.5 mg/dL (0.15-1.2); Total Protein 6.9 g/dL (6.6-8.7)
[2024-03-14] MEDS: leuprolide 22.5 mg Kit IM (16:00)
[2024-03-14 16:01] VITALS: BP 130/75; PULSE 78; RESP 18; TEMP 36.6; O2SAT 93
== END 2024-04-07 23:59 | disposition home or self-care (01) ==
PROVIDERS: Internal Medicine; PCP Family Medicine; Visit Provider Internal Medicine Medical Oncology
DX: C61 Malignant neoplasm of prostate (principal); Z53.9 Procedure and treatment not carried out, unspecified reason; Z51.11 Encounter for antineoplastic chemotherapy; Z87.891 Personal history of nicotine dependence; Z92.3 Personal history of irradiation; Z79.818 Long term (current) use of other agents affecting estrogen receptors and estrogen levels
CPT/HCPCS: 36415; 80053; 83615; 84153; 84403; 85025; 96402; 99213; J9217

== ENCOUNTER → 2024-05-23 12:22 | Outpatient (BNVA) | payer MEDICARE, SELFPAY | PROVIDERS: PCP Family Medicine; Visit Provider Family Medicine | DX: K86.2 Cyst of pancreas (principal); E11.9 Type 2 diabetes mellitus without complications; E03.9 Hypothyroidism, unspecified; C61 Malignant neoplasm of prostate; R39.9 Unspecified symptoms and signs involving the genitourinary system | CPT/HCPCS: 80053; 80061; 83036; 85025 ==

== ENCOUNTER 2024-06-06 11:55 | Oncology outpatient (recurring) (ONCR) | payer MEDICARE, SELFPAY ==
[2024-06-06 12:24] LABS: Basophils % 0.8 %; Eosinophils # 0.2 10^3/uL (0.0-0.8); Eosinophils % 4.4 %; Hematocrit 38.4 % (37-53); Lymphocytes # 0.7 10^3/uL (0.8-4.8); Lymphocytes % 12.7 %; Mean Corpuscular HGB Conc 33.9 g/dL (30-55); Mean Corpuscular Volume 97.5 fl (82-101); Monocytes # 0.6 10^3/uL (0.2-0.9); Monocytes % 10.8 %; Neutrophils # 3.63 10^3/uL (1.8-7.7); Nucleated Red Blood Cells % 0 %; Platelet Count 164 10^3/cmm (157-399); Red Blood Count 3.94 10^6/uL (3.85-5.65); Red Cell Distribution Width 12.5 % (12.1-15.1); White Blood Count 5.19 10^3/uL (3.29-11.43)
[2024-06-06 12:53] LABS: Alanine Aminotransferase 23 U/L (0-41); Albumin Level 4.2 g/dL (3.5-5.2); Alkaline Phosphatase 80 U/L (40-130); Anion Gap 14.5 (5-19); Aspartate Amino Transferase 23 U/L (0-40); Blood Urea Nitrogen 19 mg/dL (8-23); Calcium 9.2 mg/dL (8.5-10.5); Carbon Dioxide 25 mmol/L (22-29); Chloride 107 mmol/L (98-107); Globulin 2.8 g/dL (1.3-4.6); Glucose 129 mg/dL (65-115); Osmolality Calculated 298 mOsm/kg (285-295); Potassium 4.5 mmol/L (3.5-5.1); Prostate Specific Antigen 0.026 ng/mL (0-4); Sodium 142 mmol/L (136-145); Total Bilirubin 0.7 mg/dL (0.15-1.2)
[2024-06-06 13:56] LABS: Testosterone Total 11.2 ng/dL (193-740)
== END 2024-06-07 23:59 | disposition home or self-care (01) ==
PROVIDERS: Nurse Practitioner Family; PCP Family Medicine; Visit Provider Internal Medicine Medical Oncology
DX: C61 Malignant neoplasm of prostate; Z87.891 Personal history of nicotine dependence; Z92.3 Personal history of irradiation; Z92.25 Personal history of immunosuppression therapy
CPT/HCPCS: 36415; 80053; 84153; 84403; 85025; 99213

== ENCOUNTER 2024-09-22 09:24 | Oncology outpatient (recurring) (ONCR) | payer MEDICARE, SELFPAY ==
[2024-09-22 09:50] LABS: Basophils % 0.5 %; Eosinophils # 0.2 10^3/uL (0.0-0.8); Eosinophils % 3.5 %; Hematocrit 36.5 % (37-53); Lymphocytes # 0.5 10^3/uL (0.8-4.8); Lymphocytes % 8.8 %; Mean Corpuscular HGB Conc 33.4 g/dL (30-55); Mean Corpuscular Hemoglobin 32.4 pg (27-33); Mean Corpuscular Volume 97.1 fl (82-101); Mean Platelet Volume 8.8 fL (7.4-10.4); Monocytes # 0.5 10^3/uL (0.2-0.9); Monocytes % 8.8 %; Neutrophils # 4.39 10^3/uL (1.8-7.7); Nucleated Red Blood Cells % 0 %; Platelet Count 198 10^3/cmm (157-399); Red Blood Count 3.76 10^6/uL (3.85-5.65); Red Cell Distribution Width 12.5 % (12.1-15.1)
[2024-09-22 10:17] LABS: Alanine Aminotransferase 23 U/L (0-41); Albumin Level 3.9 g/dL (3.5-5.2); Alkaline Phosphatase 76 U/L (40-130); Aspartate Amino Transferase 26 U/L (0-40); Blood Urea Nitrogen 16 mg/dL (8-23); Calcium 8.4 mg/dL (8.5-10.5); Carbon Dioxide 28 mmol/L (22-29); Chloride 106 mmol/L (98-107); Creatinine Clr Calc Pharmacy 84.5876; Globulin 2.3 g/dL (1.3-4.6); Glucose 170 mg/dL (65-115); Osmolality Calculated 297 mOsm/kg (285-295); Prostate Specific Antigen 0.027 ng/mL (0-4); Sodium 141 mmol/L (136-145); Total Bilirubin 0.5 mg/dL (0.15-1.2); Total Protein 6.2 g/dL (6.6-8.7)
[2024-09-22 11:05] LABS: Testosterone Total 9.8 ng/dL (193-740)
== END 2024-10-07 23:59 | disposition home or self-care (01) ==
PROVIDERS: Nurse Practitioner Family; PCP Family Medicine; Visit Provider Internal Medicine Medical Oncology
DX: C61 Malignant neoplasm of prostate (principal); R97.20 Elevated prostate specific antigen [PSA]; Z87.891 Personal history of nicotine dependence; Z92.3 Personal history of irradiation; Z79.818 Long term (current) use of other agents affecting estrogen receptors and estrogen levels
CPT/HCPCS: 36415; 80053; 84153; 84403; 85025; 99213

== ENCOUNTER 2024-09-29 07:03 | Outpatient (CLI) | payer MEDICARE, SELFPAY ==
--- NOTE | 2024-09-29 07:25 | XRR_ITS ---
PROCEDURE INFORMATION: Exam: XR Bilateral Hips Exam date and time: 09/29/2024 7:35 AM Age: 74 years old Clinical indication: Hip pain; Bilateral; Prior surgery; Surgery date: 6+ months; Surgery type: Colectomy; Patient HX: HX of prostate cancer TECHNIQUE: Imaging protocol: Radiologic exam of the bilateral hips. Views: 2 views of hips with pelvis when performed. COMPARISON: CT abdomen pelvis wo/w [id number] 05/20/2022 7:16 AM FINDINGS: Bones/joints: No fracture or dislocation is noted. There is joint space narrowing with osteophyte formation involving both hips worse on the left than on the right. Bony mineralization is decreased. Soft tissues: Unremarkable. XR/XR hip BI 3-4V wo/w pel [id number] IMPRESSION: 1. 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
== END 2024-09-29 07:04 | disposition home or self-care (01) ==
PROVIDERS: PCP Family Medicine; Visit Provider Family Medicine
DX: M16.12 Unilateral primary osteoarthritis, left hip (principal)
CPT/HCPCS: 73521; 73522

== ENCOUNTER → 2024-11-23 07:32 | Outpatient (BNVA) | payer MEDICARE, SELFPAY | PROVIDERS: PCP Family Medicine; Visit Provider Family Medicine | DX: E11.9 Type 2 diabetes mellitus without complications (principal); I25.10 Atherosclerotic heart disease of native coronary artery without angina pectoris; E03.9 Hypothyroidism, unspecified; E78.5 Hyperlipidemia, unspecified | CPT/HCPCS: 80053; 80061; 83036; 84443; 85025 ==

== ENCOUNTER 2024-12-21 13:57 | Oncology outpatient (recurring) (ONCR) | payer MEDICARE, OTHER, SELFPAY ==
[2024-12-21 15:13] LABS: Basophils # 0.1 10^3/uL (0.0-0.1); Eosinophils # 0.2 10^3/uL (0.0-0.8); Eosinophils % 3.8 %; Hematocrit 38.6 % (37-53); Lymphocytes # 0.7 10^3/uL (0.8-4.8); Lymphocytes % 13.8 %; Mean Corpuscular HGB Conc 33.9 g/dL (30-55); Mean Corpuscular Hemoglobin 33.2 pg (27-33); Mean Platelet Volume 9.8 fL (7.4-10.4); Monocytes # 0.4 10^3/uL (0.2-0.9); Monocytes % 8.8 %; Neutrophils # 3.59 10^3/uL (1.8-7.7); Neutrophils % 71.8 %; Nucleated Red Blood Cells % 0 %; Platelet Count 159 10^3/cmm (157-399); Red Blood Count 3.94 10^6/uL (3.85-5.65); Red Cell Distribution Width 12.8 % (12.1-15.1)
[2024-12-21 15:39] LABS: Alanine Aminotransferase 28 U/L (0-41); Albumin Level 4.2 g/dL (3.5-5.2); Alkaline Phosphatase 78 U/L (40-130); Aspartate Amino Transferase 34 U/L (0-40); Blood Urea Nitrogen 18 mg/dL (8-23); Calcium 9.4 mg/dL (8.5-10.5); Carbon Dioxide 21 mmol/L (22-29); Chloride 105 mmol/L (98-107); Creatinine Clr Calc Pharmacy 85.1924; Globulin 2.7 g/dL (1.3-4.6); Glucose 122 mg/dL (65-115); Osmolality Calculated 293 mOsm/kg (285-295); Prostate Specific Antigen 0.039 ng/mL (0-4); Sodium 140 mmol/L (136-145); Testosterone Total 26.2 ng/dL (193-740); Total Bilirubin 0.4 mg/dL (0.15-1.2); Total Protein 6.9 g/dL (6.6-8.7)
== END 2025-01-05 23:59 | disposition home or self-care (01) ==
PROVIDERS: Nurse Practitioner Family; PCP Family Medicine; Visit Provider Internal Medicine
DX: Z08 Encounter for follow-up examination after completed treatment for malignant neoplasm (principal); Z85.46 Personal history of malignant neoplasm of prostate; I10 Essential (primary) hypertension; E78.5 Hyperlipidemia, unspecified; E11.9 Type 2 diabetes mellitus without complications; I25.10 Atherosclerotic heart disease of native coronary artery without angina pectoris; E03.9 Hypothyroidism, unspecified; Z87.891 Personal history of nicotine dependence; Z92.3 Personal history of irradiation; Z79.818 Long term (current) use of other agents affecting estrogen receptors and estrogen levels; Z92.21 Personal history of antineoplastic chemotherapy
CPT/HCPCS: 36415; 80053; 84153; 84403; 85025; 99213

== ENCOUNTER → 2025-02-14 09:43 | Outpatient (BNVA) | payer MEDICARE, OTHER, SELFPAY | PROVIDERS: PCP Family Medicine; Visit Provider Family Medicine | DX: R10.2 Pelvic and perineal pain (principal) | CPT/HCPCS: 81000; 87086 ==

== ENCOUNTER 2025-02-23 13:36 | Oncology outpatient (recurring) (ONCR) | payer MEDICARE, OTHER, SELFPAY ==
--- NOTE | 2025-02-23 14:45 | CT_ITS ---
WS: [id number] CT ABDOMEN AND PELVIS WITH CONTRAST HISTORY: Lower abdominal pain with constipation. History of colectomy. No history of colon cancer. TECHNIQUE: Imaging performed of the abdomen and pelvis with IV contrast. Single phase imaging of the abdomen. Coronal and sagittal reformats are submitted. All CT scans at [facility] use at least one of these dose optimization techniques: automated exposure control; mA and/or kV adjustment per patient size (includes targeted exams where dose is matched to clinical indication); or iterative reconstruction. IV CONTRAST: Omnipaque 350; 100 mL IV. Oral contrast: Yes. DLP: 632.03 mGy.cm COMPARISON: 05/20/2022 Lower thorax: Lung bases are clear. Heart is normal size. Small hiatal hernia. Liver/biliary system: No interval change. Very tiny low-attenuation nodule towards the diaphragmatic surface. Normal portal vein. Gallbladder: Normal. No gallstones or wall thickening. No pericholecystic fluid. Pancreas: Pancreatic atrophy. Heterogeneous appearance of the pancreas. Reidentified are several cystic masses associated with the pancreas which have been previously described. Cystic mass in the uncinate process measures 1.5 x 2.0 cm and has slightly increased in size since 2020. There are smaller cysts extending lateral from the pancreatic head. There is a tiny cyst within the pancreatic tail. Common bile duct and pancreatic duct do not appear significantly dilated. Spleen: Normal size spleen. No mass or infarct. Adrenal glands: Normal. Right kidney: Normal. Left kidney: No obstruction. Tiny cortical cyst lower pole. Aorta: Mild atherosclerosis with no aneurysm. Lymphadenopathy: None. Free fluid: None. GI tract: Normally distended stomach. No small bowel obstruction. Appendix is not identified. No evidence for appendicitis. Moderate constipation throughout the colon. Colon is mildly tortuous. Colon is distended to the level of the sigmoid. Anastomotic sutures in the region of the sigmoid are reidentified. There has been a change in configuration of the soft tissue at the sigmoid anastomosis. There is soft tissue component extending into the lumen and narrowing the lumen. There is asymmetric wall thickening with mild enhancement suspicious for neoplasm. There very few rectal lymph nodes. Abdominal wall: Thinning of the abdominal wall musculature with a LEFT spigelian hernia which is unchanged. This may've been the site of prior colostomy with reversal. Small fat-containing periumbilical hernia. Pelvis: Normally distended urinary bladder. No inguinal lymph nodes. Bones: Degenerative joint disease involving the hips, LEFT greater than RIGHT. CT/CT abdomen pelvis w con* [id number] IMPRESSION: 1. Interval change in appearance of the sigmoid anastomosis since 05/20/2022. T here is now soft tissue narrowing the lumen and asymmetric circumferential soft tissue. Recommend colonoscopy, neoplasm needs to be excluded. 2. Reidentified are multiple cystic masses involving the pancreas, greatest in the uncinate process and pancreatic head with mild increase in size since 05/20. IPMN likely. Malignancy is not completely excluded. There has only been minimal increase in size of the cystic masses since 04/09/2021. 3. No adrenal metastasis or liver metastasis. 4. No ascites or adenopathy. 5. LEFT spigelian hernia.
[2025-02-23 15:08] LABS: Blood Urea Nitrogen 15 mg/dL (8-23)
== END 2025-03-07 23:59 | disposition home or self-care (01) ==
LOC: ONCMED 13:37 → RAD 13:37 → ONCMED 02-26 11:34
PROVIDERS: PCP Family Medicine; Visit Provider Family Medicine
DX: Z08 Encounter for follow-up examination after completed treatment for malignant neoplasm (principal); Z85.46 Personal history of malignant neoplasm of prostate; I10 Essential (primary) hypertension; E78.5 Hyperlipidemia, unspecified; E11.9 Type 2 diabetes mellitus without complications; I25.10 Atherosclerotic heart disease of native coronary artery without angina pectoris; E03.9 Hypothyroidism, unspecified; Z87.891 Personal history of nicotine dependence; Z92.3 Personal history of irradiation; Z79.818 Long term (current) use of other agents affecting estrogen receptors and estrogen levels; Z92.21 Personal history of antineoplastic chemotherapy; K86.2 Cyst of pancreas; R10.9 Unspecified abdominal pain
CPT/HCPCS: 74177; 82565; 84520

== ENCOUNTER 2025-03-22 10:01 | Oncology outpatient (recurring) (ONCR) | payer MEDICARE, OTHER, SELFPAY ==
[2025-03-22 10:25] LABS: Basophils % 0.9 %; Eosinophils # 0.2 10^3/uL (0.0-0.8); Eosinophils % 3.5 %; Hematocrit 37.1 % (37-53); Lymphocytes # 0.7 10^3/uL (0.8-4.8); Lymphocytes % 16.7 %; Mean Corpuscular HGB Conc 32.9 g/dL (30-55); Mean Corpuscular Hemoglobin 32.7 pg (27-33); Mean Corpuscular Volume 99.5 fl (82-101); Mean Platelet Volume 9.2 fL (7.4-10.4); Monocytes # 0.4 10^3/uL (0.2-0.9); Monocytes % 8.5 %; Neutrophils # 2.97 10^3/uL (1.8-7.7); Neutrophils % 69.7 %; Nucleated Red Blood Cells % 0 %; Platelet Count 151 10^3/cmm (157-399); Red Blood Count 3.73 10^6/uL (3.85-5.65); Red Cell Distribution Width 12.5 % (12.1-15.1); White Blood Count 4.26 10^3/uL (3.29-11.43)
[2025-03-22 11:01] LABS: Alanine Aminotransferase 26 U/L (0-41); Albumin Level 3.9 g/dL (3.5-5.2); Alkaline Phosphatase 83 U/L (40-130); Anion Gap 13.5 (5-19); Aspartate Amino Transferase 29 U/L (0-40); Blood Urea Nitrogen 19 mg/dL (8-23); Calcium 8.8 mg/dL (8.5-10.5); Carbon Dioxide 26 mmol/L (22-29); Chloride 104 mmol/L (98-107); Creatinine Clr Calc Pharmacy 82.5339; Glucose 141 mg/dL (65-115); Lactate Dehydrogenase 221 U/L (135-225); Osmolality Calculated 293 mOsm/kg (285-295); Potassium 4.5 mmol/L (3.5-5.1); Prostate Specific Antigen 0.044 ng/mL (0-4); Sodium 139 mmol/L (136-145); Testosterone Total 48.8 ng/dL (193-740); Total Bilirubin 0.7 mg/dL (0.15-1.2); Total Protein 6.9 g/dL (6.6-8.7)
== END 2025-04-07 23:59 | disposition home or self-care (01) ==
LOC: ONCMED 10:03
PROVIDERS: Internal Medicine; PCP Family Medicine; Visit Provider Family Medicine
DX: Z08 Encounter for follow-up examination after completed treatment for malignant neoplasm (principal); Z85.46 Personal history of malignant neoplasm of prostate; R97.20 Elevated prostate specific antigen [PSA]; Z92.3 Personal history of irradiation; Z92.21 Personal history of antineoplastic chemotherapy
CPT/HCPCS: 36415; 80053; 83615; 84153; 84403; 85025; 99214

== ENCOUNTER 2025-06-28 09:53 | Oncology outpatient (recurring) (ONCR) | payer MEDICARE, OTHER, SELFPAY ==
[2025-06-28 10:42] LABS: Hematocrit 37.4 % (37-53); Hemoglobin 12.50 g/dL (11.27-16.99); Mean Corpuscular HGB Conc 33.4 g/dL (30-55); Mean Corpuscular Hemoglobin 33.0 pg (27-33); Mean Corpuscular Volume 98.7 fl (82-101); Nucleated Red Blood Cells % 0 %; Platelet Count 163 10^3/cmm (157-399); Red Blood Count 3.79 10^6/uL (3.85-5.65); White Blood Count 5.10 10^3/uL (3.29-11.43)
[2025-06-28 11:08] LABS: Prostate Specific Antigen 0.053 ng/mL (0-4)
[2025-06-28 11:10] LABS: Alanine Aminotransferase 19 U/L (0-41); Albumin Level 4.0 g/dL (3.5-5.2); Alkaline Phosphatase 83 U/L (40-130); Anion Gap 13.8 (5-19); Aspartate Amino Transferase 23 U/L (0-40); Blood Urea Nitrogen 21 mg/dL (8-23); Calcium 8.9 mg/dL (8.5-10.5); Carbon Dioxide 26 mmol/L (22-29); Chloride 107 mmol/L (98-107); Cholesterol 90 mg/dL (0-200); Creatinine Clr Calc Pharmacy 82.6704; Globulin 2.7 g/dL (1.3-4.6); Glucose 130 mg/dL (65-115); HDL Cholesterol 35 mg/dL (60-100); Osmolality Calculated 299 mOsm/kg (285-295); Potassium 4.8 mmol/L (3.5-5.1); Sodium 142 mmol/L (136-145); Thyroid Stimulating Hormone 5.74 uIU/mL (0.27-4.20); Total Protein 6.7 g/dL (6.6-8.7); Triglycerides 51 mg/dL (0-150)
[2025-06-28 11:21] LABS: Estmated Average Glucose 143; Hemoglobin A1C 6.6 % (4.0-6.0)
== END 2025-07-08 23:59 | disposition home or self-care (01) ==
PROVIDERS: Internal Medicine; PCP Family Medicine; Visit Provider Family Medicine
DX: Z08 Encounter for follow-up examination after completed treatment for malignant neoplasm (principal); Z85.46 Personal history of malignant neoplasm of prostate; R97.20 Elevated prostate specific antigen [PSA]; E11.9 Type 2 diabetes mellitus without complications; K86.2 Cyst of pancreas; Z87.891 Personal history of nicotine dependence; Z92.21 Personal history of antineoplastic chemotherapy; Z92.3 Personal history of irradiation
CPT/HCPCS: 80053; 80061; 83036; 83615; 84153; 84403; 84443; 85025; 99213

== ENCOUNTER 2025-10-26 08:58 | Oncology outpatient (recurring) (ONCR) | payer MEDICARE, OTHER, SELFPAY ==
[2025-10-26 09:24] LABS: Hematocrit 41.5 % (37-53); Hemoglobin 13.80 g/dL (11.27-16.99); Mean Corpuscular HGB Conc 33.3 g/dL (30-55); Mean Corpuscular Hemoglobin 32.0 pg (27-33); Mean Corpuscular Volume 96.3 fl (82-101); Nucleated Red Blood Cells % 0 %; Platelet Count 185 10^3/cmm (157-399); Red Blood Count 4.31 10^6/uL (3.85-5.65); White Blood Count 5.75 10^3/uL (3.29-11.43)
[2025-10-26 09:58] LABS: Alanine Aminotransferase 27 U/L (0-41); Albumin Level 4.5 g/dL (3.5-5.2); Alkaline Phosphatase 89 U/L (40-130); Anion Gap 12.6 (5-19); Aspartate Amino Transferase 29 U/L (0-40); Blood Urea Nitrogen 18 mg/dL (8-23); Calcium 9.7 mg/dL (8.5-10.5); Carbon Dioxide 29 mmol/L (22-29); Chloride 102 mmol/L (98-107); Free T4 Free Thyroxine 0.92 ng/dL (0.82-1.77); Globulin 2.7 g/dL (1.3-4.6); Glucose 149 mg/dL (65-115); Osmolality Calculated 293 mOsm/kg (285-295); Potassium 4.6 mmol/L (3.5-5.1); Prostate Specific Antigen 0.063 ng/mL (0-4); Sodium 139 mmol/L (136-145); Thyroid Stimulating Hormone 5.89 uIU/mL (0.27-4.20); Total Protein 7.2 g/dL (6.6-8.7)
== END 2025-11-07 23:59 | disposition home or self-care (01) ==
PROVIDERS: Internal Medicine; PCP Family Medicine; Visit Provider Family Medicine
DX: Z08 Encounter for follow-up examination after completed treatment for malignant neoplasm (principal); Z85.46 Personal history of malignant neoplasm of prostate; Z92.3 Personal history of irradiation; Z92.21 Personal history of antineoplastic chemotherapy
CPT/HCPCS: 80053; 83615; 84153; 84403; 84439; 84443; 84481; 85025; 99213